=== PATIENT | male | born 1950 | race Caucasian/White ===

== ENCOUNTER 2017-08-20 11:52 | Inpatient (IN) | payer MEDICARE, OTHER ==
[~2017-08-20] VITALS: Ht 172.7 cm; Wt 75.2 kg
[~2017-08-20 11:52] MED LIST: AMIO200T33 PO; EZET10TA6; ISOS60TA24 PO; METO50TA7 PO; MONT10TA23; OMEP20CA74 PO; PRO AIR INH; PROVENTYL INH; QUIN10TA; RIVA20TA PO; ROSU5TAB5 PO; VENL150C PO; VENL150C58 PO
[2017-08-20] MEDS ORDERED: SODIUM CHLORIDE 0.9% 1,000 ML IV ONE (11:59)
[2017-08-20] MEDS ORDERED: IPRATROPIUM BROM 0.5 MG/2.5ML INH SOL HHN ONE (12:00)
[2017-08-20] MEDS ORDERED: LEVOFLOXACIN 500MG 100 ML IV ONE (12:00)
[2017-08-20] MEDS ORDERED: methylPREDNISolone SOD SUCC 125 MG/2 ML VL IV ONE (12:00)
[2017-08-20] MEDS ORDERED: ALBUTEROL SULF 2.5 MG/0.5ML(0.5%) NEB SOLN HHN ONE (12:00)
[2017-08-20 13:35] LABS: Basophils # (auto) 0 uL; Basophils % (auto) 0.3 % (0.0-2.0); Eosinophils # (auto) 0 uL; Eosinophils % (auto) 0.4 % (0.0-7.0); Hemoglobin 14.6 g/dL (13.5-17.5); Lymphocytes # (auto) 1.7 uL; Lymphocytes % (auto) 18.1 % (10.0-50.0); Mean Corpuscular Hemoglobin 29.8 pg (28.0-32.0); Mean Corpuscular Hgb Conc. 32.4 g/dL (32.0-36.0); Monocytes # (auto) 0.6 uL; Monocytes % (auto) 6.2 % (0.0-12.0); Nucleated Red Blood Cells % 0.1 %; Platelet Count (auto) 108 10^3/uL (140-450); Red Blood Cells 4.89 10^6/uL (4.5-5.90); Red Cell Distribution Width 14.9 % (11.8-14.3); White Blood Cell 9.4 10^3/uL (4.4-10.8)
[2017-08-20 14:03] LABS: Alanine Aminotransferase 18 U/L (16-61); Albumin 3.9 g/dL (3.4-5.0); Anion Gap 11 (5-15); Aspartate Aminotransferase 16 U/L (15-37); BUN/Creatinine Ratio 15.1; Blood Urea Nitrogen 11 mg/dL (7-18); Carbon Dioxide 24 mmol/L (21-32); Chloride 101 mmol/L (98-107); GFR African American 138 mL/min; GFR Non-African American 114 mL/min; Glucose 117 mg/dL (74-106); Magnesium 2.4 mg/dL (1.6-2.6); Potassium 3.3 mmol/L (3.5-5.1); Sodium 136 mmol/L (136-145)
[2017-08-20 14:08] LABS: Alkaline Phosphatase 80 U/L (45-117); Bilirubin, Total 0.9 mg/dL (0.2-1.0); Total Protein 7.7 g/dL (6.4-8.2)
[2017-08-20 14:13] LABS: Lactic Acid w/Reflex 2.6 mmol/L (0.4-2.0)
[2017-08-20] MEDS ORDERED: ACETAMINOPHEN 325 MG TAB PO PRN (15:00)
[2017-08-20] MEDS ORDERED: MORPHINE SULFATE 10 MG/ML INJ 1ML SDV IV PRN ×2 (15:00)
[2017-08-20] MEDS ORDERED: NITROGLYCERIN 0.4 MG SL TAB SL PRN (15:00)
[2017-08-20] MEDS ORDERED: PROCHLORPERAZINE EDISYLATE 5 MG/ML 2ML VIAL IV PRN (15:00)
[2017-08-20] MEDS ORDERED: POTASSIUM CHLORIDE 8 MEQ TAB PO ONE (15:15)
[2017-08-20] MEDS ORDERED: DIAZEPAM 5 MG TAB PO PRN (15:15)
[2017-08-20] MEDS ORDERED: BACLOFEN 10 MG TAB PO PRN (15:15)
[2017-08-20] MEDS ORDERED: AZITHROMYCIN 500MG/ 250ML 250 ML IV ONE (15:15)
[2017-08-20] MEDS ORDERED: cefTRIAXone 1GM/10ml IVPUSH 10 ML IV ONE (15:15)
[2017-08-20 15:25] VITALS: BP 140/76
[2017-08-20] MEDS: ALBUTEROL SULF 2.5 MG/0.5ML(0.5%) NEB SOLN NEB SCH (18:08)
[2017-08-20] MEDS: IPRATROPIUM BROM 0.5 MG/2.5ML INH SOL NEB SCH (18:08)
[2017-08-20 21:00] VITALS: BP 127/81
[2017-08-20 21:05] LABS: Lactic Acid w/Reflex 5.3 mmol/L (0.4-2.0)
[2017-08-20 21:30] VITALS: BP 127/81
[2017-08-20] MEDS: SODIUM CHLOR 0.9% PF (SALINE LOCK) 10ML VIAL IV SCH (21:38)
[2017-08-20] MEDS: AMIODARONE HCL 200 MG TAB PO SCH (21:39)
[2017-08-20] MEDS: FAMOTIDINE 20 MG TAB PO SCH (21:39)
[2017-08-20] MEDS: ATORVASTATIN 20 MG TAB PO SCH (21:39)
[2017-08-20] MEDS: MONTELUKAST SODIUM 10 MG TAB PO SCH (21:39)
[2017-08-20] MEDS: HYDROcodone-ACET 5/325MG TAB PO PRN (21:40)
[2017-08-20] MEDS: TEMAZEPAM 15 MG CAP PO PRN (23:12)
[2017-08-20] MEDS: DOCUSATE SOD 100 MG CAP PO PRN (23:12)
[2017-08-21 05:00] VITALS: BP 158/97
[2017-08-21] MEDS: SODIUM CHLOR 0.9% PF (SALINE LOCK) 10ML VIAL IV SCH ×3 (05:35→21:57)
[2017-08-21] MEDS: HYDROcodone-ACET 5/325MG TAB PO PRN ×2 (05:35→20:54)
[2017-08-21 05:50] LABS: Basophils # (auto) 0 uL; Basophils % (auto) 0.1 % (0.0-2.0); Eosinophils # (auto) 0 uL; Hematocrit 40.7 % (41.0-53.0); Hemoglobin 13.9 g/dL (13.5-17.5); Lymphocytes # (auto) 0.4 uL; Lymphocytes % (auto) 5.7 % (10.0-50.0); Mean Corpuscular Hemoglobin 29.9 pg (28.0-32.0); Mean Corpuscular Hgb Conc. 34.1 g/dL (32.0-36.0); Mean Corpuscular Volume 87.7 fL (80.0-100.0); Monocytes # (auto) 0.3 uL; Monocytes % (auto) 3.7 % (0.0-12.0); Neutrophils # (auto) 6.2 uL; Neutrophils % (auto) 90.5 % (37.0-80.0); Nucleated Red Blood Cells % 0.1 %; Platelet Count (auto) 122 10^3/uL (140-450); Red Blood Cells 4.64 10^6/uL (4.5-5.90); Red Cell Distribution Width 14.4 % (11.8-14.3); White Blood Cell 6.9 10^3/uL (4.4-10.8)
[2017-08-21 06:02] LABS: Albumin 3.6 g/dL (3.4-5.0); BUN/Creatinine Ratio 18.2; Potassium 3.5 mmol/L (3.5-5.1)
[2017-08-21 06:05] LABS: Bilirubin, Total 0.6 mg/dL (0.2-1.0); Total Protein 7.7 g/dL (6.4-8.2)
[2017-08-21] MEDS: ALBUTEROL SULF 2.5 MG/0.5ML(0.5%) NEB SOLN NEB SCH ×4 (07:22→19:29)
[2017-08-21] MEDS: IPRATROPIUM BROM 0.5 MG/2.5ML INH SOL NEB SCH ×4 (07:22→18:00)
[2017-08-21 09:00] VITALS: BP 147/90
[2017-08-21] MEDS: METOPROLOL SUCCINATE XL 50 MG TAB PO SCH (10:00)
[2017-08-21] MEDS ORDERED: PANTOPRAZOLE 40 MG TAB PO SCH (10:00)
[2017-08-21] MEDS ORDERED: PATIENTS OWN MEDICATION PO SCH (10:00)
[2017-08-21] MEDS: cefTRIAXone 1GM/10ml IVPUSH 10 ML IV SCH (10:02)
[2017-08-21] MEDS: AZITHROMYCIN 500MG/ 250ML 250 ML IV SCH (10:02)
[2017-08-21] MEDS: MULTIPLE VITAMIN TAB PO SCH (10:03)
[2017-08-21] MEDS: QUINAPRIL HCL 10 MG TAB PO SCH (10:03)
[2017-08-21] MEDS: AMIODARONE HCL 200 MG TAB PO SCH ×2 (10:03→21:57)
[2017-08-21] MEDS: ISOSORBIDE MONONITRATE 60 MG TAB PO SCH (10:03)
[2017-08-21] MEDS: FAMOTIDINE 20 MG TAB PO SCH (10:04)
[2017-08-21 12:37] LABS: INR 0.93 (0.9-1.15); Prothrombin Time 10.1 sec (9.37-12.3)
[2017-08-21 13:00] VITALS: BP 129/77
[2017-08-21 13:55] LABS: INR 0.93 (0.9-1.15); Partial Thromboplastin Time 25.8 sec (22.64-33.71); Prothrombin Time 10.1 sec (9.37-12.3)
[2017-08-21 17:00] VITALS: BP 159/79
[2017-08-21 21:42] VITALS: BP 108/52
[2017-08-21] MEDS: ATORVASTATIN 20 MG TAB PO SCH (21:57)
[2017-08-21] MEDS: DOCUSATE SOD 100 MG CAP PO PRN (21:58)
[2017-08-21] MEDS: MONTELUKAST SODIUM 10 MG TAB PO SCH (21:58)
[2017-08-21] MEDS: PANTOPRAZOLE 40 MG TAB PO SCH (21:58)
[2017-08-22] MEDS: ALBUTEROL SULF 2.5 MG/0.5ML(0.5%) NEB SOLN NEB SCH ×4 (00:16→18:56)
[2017-08-22] MEDS: IPRATROPIUM BROM 0.5 MG/2.5ML INH SOL NEB SCH ×4 (00:17→18:56)
[2017-08-22] MEDS: HYDROcodone-ACET 5/325MG TAB PO PRN ×3 (02:37→17:52)
[2017-08-22 05:00] VITALS: BP 149/81
[2017-08-22] MEDS: SODIUM CHLOR 0.9% PF (SALINE LOCK) 10ML VIAL IV SCH ×3 (06:00→21:44)
[2017-08-22 07:13] LABS: Basophils # (auto) 0 uL; Basophils % (auto) 0.3 % (0.0-2.0); Eosinophils # (auto) 0 uL; Eosinophils % (auto) 0.4 % (0.0-7.0); Hematocrit 38.8 % (41.0-53.0); Hemoglobin 13.2 g/dL (13.5-17.5); Lymphocytes # (auto) 1.3 uL; Lymphocytes % (auto) 13.2 % (10.0-50.0); Mean Corpuscular Hemoglobin 30.1 pg (28.0-32.0); Mean Corpuscular Volume 88.4 fL (80.0-100.0); Monocytes # (auto) 0.7 uL; Monocytes % (auto) 6.5 % (0.0-12.0); Neutrophils % (auto) 79.6 % (37.0-80.0); Nucleated Red Blood Cells % 0.1 %; Platelet Count (auto) 155 10^3/uL (140-450); Red Blood Cells 4.38 10^6/uL (4.5-5.90); Red Cell Distribution Width 14.4 % (11.8-14.3)
[2017-08-22 07:36] LABS: BUN/Creatinine Ratio 27.4; Calcium 9.3 mg/dL (8.5-10.1); Potassium 3.4 mmol/L (3.5-5.1)
[2017-08-22 07:55] VITALS: BP 141/85
[2017-08-22] MEDS: cefTRIAXone 1GM/10ml IVPUSH 10 ML IV SCH (09:35)
[2017-08-22] MEDS: AZITHROMYCIN 500MG/ 250ML 250 ML IV SCH (09:36)
[2017-08-22] MEDS: PANTOPRAZOLE 40 MG TAB PO SCH ×2 (09:37→21:44)
[2017-08-22] MEDS: QUINAPRIL HCL 10 MG TAB PO SCH (09:37)
[2017-08-22] MEDS: METOPROLOL SUCCINATE XL 50 MG TAB PO SCH (09:38)
[2017-08-22] MEDS: MULTIPLE VITAMIN TAB PO SCH (09:38)
[2017-08-22] MEDS: AMIODARONE HCL 200 MG TAB PO SCH ×2 (09:42→21:44)
[2017-08-22] MEDS: ISOSORBIDE MONONITRATE 60 MG TAB PO SCH (09:42)
[2017-08-22 11:36] VITALS: BP 153/82
[2017-08-22 16:18] VITALS: BP 137/82
[2017-08-22] MEDS ORDERED: BISACODYL 10 MG RECT SUPP PR ONE (17:00)
[2017-08-22] MEDS ORDERED: LACTULOSE 20Gm/30ML SOLN PO ONE (17:00)
[2017-08-22] MEDS: ATORVASTATIN 20 MG TAB PO SCH (21:44)
[2017-08-22] MEDS: MONTELUKAST SODIUM 10 MG TAB PO SCH (21:45)
[2017-08-22 22:00] VITALS: BP 147/89
[2017-08-23] VITALS (9 sets, daily range): BP systolic 128–163; BP diastolic 45–101
[2017-08-23] MEDS: IPRATROPIUM BROM 0.5 MG/2.5ML INH SOL NEB SCH ×4 (00:41→19:40)
[2017-08-23] MEDS: ALBUTEROL SULF 2.5 MG/0.5ML(0.5%) NEB SOLN NEB SCH ×4 (00:41→19:40)
[2017-08-23] MEDS: TEMAZEPAM 15 MG CAP PO PRN (03:21)
[2017-08-23] MEDS: SODIUM CHLOR 0.9% PF (SALINE LOCK) 10ML VIAL IV SCH ×2 (05:28→13:01)
[2017-08-23 07:57] LABS: Basophils # (auto) 0 uL; Basophils % (auto) 0.4 % (0.0-2.0); Eosinophils # (auto) 0 uL; Eosinophils % (auto) 0.4 % (0.0-7.0); Hematocrit 42.3 % (41.0-53.0); Hemoglobin 14.2 g/dL (13.5-17.5); Lymphocytes # (auto) 1.2 uL; Lymphocytes % (auto) 14.9 % (10.0-50.0); Mean Corpuscular Hemoglobin 29.8 pg (28.0-32.0); Mean Corpuscular Hgb Conc. 33.6 g/dL (32.0-36.0); Mean Corpuscular Volume 88.8 fL (80.0-100.0); Monocytes # (auto) 0.6 uL; Neutrophils # (auto) 6.4 uL; Neutrophils % (auto) 77.3 % (37.0-80.0); Platelet Count (auto) 196 10^3/uL (140-450); Red Blood Cells 4.77 10^6/uL (4.5-5.90); Red Cell Distribution Width 14.5 % (11.8-14.3); White Blood Cell 8.3 10^3/uL (4.4-10.8)
[2017-08-23 08:05] LABS: BUN/Creatinine Ratio 20.5; Calcium 9.6 mg/dL (8.5-10.1); Potassium 4.3 mmol/L (3.5-5.1)
[2017-08-23] MEDS ORDERED: LIDOCAINE VISCOUS 2% 15ML UD ONE (08:25)
[2017-08-23] MEDS ORDERED: diphenhdrAMINE HCL 50 MG/1 ML VL ONE (08:25)
[2017-08-23] MEDS ORDERED: SODIUM CHLORIDE LOCK 10 ML ONE (08:25)
[2017-08-23] MEDS ORDERED: fentaNYL CITRATE 100 MCG/2 ML VL ONE (08:26)
[2017-08-23] MEDS: MIDAZOLAM HCL 5 MG/ML-1ML VIAL ONE ×2 (09:15→09:18)
[2017-08-23] MEDS ORDERED: AZITHROMYCIN 250 MG TAB PO SCH (10:00)
[2017-08-23] MEDS: cefTRIAXone 1GM/10ml IVPUSH 10 ML IV SCH (10:47)
[2017-08-23] MEDS: QUINAPRIL HCL 10 MG TAB PO SCH (10:48)
[2017-08-23] MEDS: AMIODARONE HCL 200 MG TAB PO SCH (10:48)
[2017-08-23] MEDS: METOPROLOL SUCCINATE XL 50 MG TAB PO SCH (10:50)
[2017-08-23] MEDS: MULTIPLE VITAMIN TAB PO SCH (10:51)
[2017-08-23] MEDS: PANTOPRAZOLE 40 MG TAB PO SCH (10:51)
[2017-08-23] MEDS: ISOSORBIDE MONONITRATE 60 MG TAB PO SCH (10:51)
[2017-08-23] MEDS: HYDROcodone-ACET 5/325MG TAB PO PRN ×2 (13:01→17:44)
[2017-08-23] MEDS ORDERED: AZIT250T7 PO (16:57)
[2017-08-23] MEDS ORDERED: PANT40T PO (16:57)
== END 2017-08-23 19:41 | disposition home or self-care (01) | DRG 871 ==
LOC: EDBD 11:52 → ER 11:52 → TELE 11:53 → TELE-WESTW 20:38
PROVIDERS: ADMIT Internal Medicine; ATTEND Nurse Practitioner Acute Care
PROC: 0DB78ZX Excision of Stomach, Pylorus, Via Natural or Artificial Opening Endoscopic, Diagnostic (ICD-10-PCS; principal; 2017-08-23 09:13)
DX: A41.9 Sepsis, unspecified organism (principal); J18.9 Pneumonia, unspecified organism; D68.69 Other thrombophilia; D69.6 Thrombocytopenia, unspecified; I11.0 Hypertensive heart disease with heart failure; K29.61 Other gastritis with bleeding; I48.91 Unspecified atrial fibrillation; I48.92 Unspecified atrial flutter; I50.42 Chronic combined systolic (congestive) and diastolic (congestive) heart failure; I48.1 Persistent atrial fibrillation; J44.0 Chronic obstructive pulmonary disease with (acute) lower respiratory infection; J45.901 Unspecified asthma with (acute) exacerbation; K92.1 Melena; J44.1 Chronic obstructive pulmonary disease with (acute) exacerbation; J20.9 Acute bronchitis, unspecified; E87.6 Hypokalemia; E78.5 Hyperlipidemia, unspecified; F32.9 Major depressive disorder, single episode, unspecified; I25.10 Atherosclerotic heart disease of native coronary artery without angina pectoris; I73.9 Peripheral vascular disease, unspecified; K59.00 Constipation, unspecified; R74.0 Nonspecific elevation of levels of transaminase and lactic acid dehydrogenase [LDH]; Z90.49 Acquired absence of other specified parts of digestive tract; Z95.810 Presence of automatic (implantable) cardiac defibrillator; Z85.46 Personal history of malignant neoplasm of prostate; Z93.3 Colostomy status; I25.2 Old myocardial infarction; Z90.79 Acquired absence of other genital organ(s); Z80.8 Family history of malignant neoplasm of other organs or systems; Z87.891 Personal history of nicotine dependence; Z98.61 Coronary angioplasty status; Z71.3 Dietary counseling and surveillance
CPT/HCPCS: 36415; 43239; 71045; 74176; 80048; 80053; 83605; 83735; 83880; 84484; 85025; 85610; 85730; 86850; 86900; 86901; 87040; 93005; 94640; 94644; 96374; 96375; 99291; J1956; J2250

== ENCOUNTER 2024-06-27 16:45 | Inpatient (IN) | payer MEDICARE, OTHER ==
[~2024-06-27] VITALS: Ht 172.7 cm; Wt 82.4 kg
[~2024-06-27 16:45] MED LIST changes: +AZIT-43 PO; +BUDE1AER6 IN; +EZET10TA22 BC; -EZET10TA6; +HYDR-4798 PO; +ISOS1TAB29 PO; -ISOS60TA24 PO; +METO-6 PO; -METO50TA7 PO; -MONT10TA23; +MONT10TA23 PO; +PANT40T PO; +PANT40TA2 PO; +PREG100C PO; -QUIN10TA; +QUIN10TA2; -VENL150C PO; +VENL150C3 PO
[2024-06-27 16:55] VITALS: PULSE 148; RESP 16; O2SAT 96
--- NOTE | 2024-06-27 16:57 | ED.PDOC ---
SOB-HPI HPI Comments A 73 year old male brought in by EMS presents to the ED with a chief complaint of shortness of breath onset 2 days. Per EMS, called 911 due to the patient experiencing shortness of breath for the past 2 days but worsen today. EMS gave patient 2 Nebulizer treatment with no improvement. Upon ED arrival, patient was on oxygen, RR was 20 with abdominal retractions. He has a past medical history of CHF, COPD, TX, HTN, Afib, cancer, PAD, HLD. No other symptoms or modifying factors present at this time. Chief Complaint: Shortness of Breath Time Seen by MD: 16:45 Primary Care Provider: DR COLMENARES Reviewed notes: Medications, Allergies Information Source: Patient, Emergency Med Personnel Mode of Arrival: EMS Severity: Moderate Timing: Days Duration: Since onset History of: COPD, CHF Prehospital treatment: Oxygen, Treatment Past Medical History PAST MEDICAL HISTORY: AFIB, Cancer, CHF, COPD, Depression, High Lipids, HTN, TX, PAD Surgical History: Cholecystectomy, Hernia Repair, Pacemaker, PTCA Family History Family History: No family hx of Cancer Social History Smoker: Non-Smoker, Quit Greater Than 1 Year Alcohol: Denies ETOH Use Drugs: Denies Drug Use Lives In: Home Constitutional: denies: chills, diaphoresis, fatigue, fever, malaise, sweats, weakness, others EENTM: denies: blurred vision, double vision, ear bleeding, ear discharge, ear drainage, ear pain, ear ringing, eye pain, eye redness, hearing loss, mouth pain, mouth swelling, nasal discharge, nose bleeding, nose congestion, nose pain, photophobia, tearing, throat pain, throat swelling, voice changes, others Respiratory: reports: shortness of breath, wheezing; denies: cough, hemoptysis, orthopnea, SOB at rest, SOB with excertion, stridor, others Cardiovascular: denies: chest pain, dizzy spells, diaphoresis, Dyspnea on exertion, edema, irregular heart beat, left arm pain, lightheadedness, palpitations, PND, syncope, others Gastrointestinal: denies: abdomen distended, abdominal pain, blood streaked bowels, constipated, diarrhea, dysphagia, difficulty swallowing, hematemesis, melena, nausea, poor appetite, poor fluid intake, rectal bleeding, rectal pain, vomiting, others Genitourinary: denies: burning, dysuria, flank pain, frequency, hematuria, incontinence, penile discharge, penile sore, pain, testicle pain, testicle swelling, urgency, others Neurological: denies: dizziness, fainting, headache, left sided numbness, left sided weakness, numbness, paresthesia, pre-existing deficit, right sided numbness, right sided weakness, seizure, speech problems, tingling, tremors, weakness, others Musculoskeletal: denies: back pain, gout, joint pain, joint swelling, muscle pain, muscle stiffness, neck pain, others Integumetry: denies: bruises, change in color, change in hair/nails, dryness, laceration, lesions, lumps, rash, wounds, others Allergic/Immunocompromised: denies: Difficulty Healing, Frequent Infections, Hives, Itching, others Hematologic/Lymphatic: denies: anemia, blood clots, easy bleeding, easy bruising, swollen glands, others Endocrine: denies: excessive hunger, excessive sweating, excessive thirst, excessive urination, flushing, intolerance to cold, intolerance to heat, unexplained weight gain, unexplained weight loss, others Psychiatric: denies: anxiety, bipolar disorder, depression, hopeless, panic disorder, schizophrenia, sleepless, suicidal, others All Other Systems: Reviewed and Negative Physical Exam General Appearance: Moderate Distress, Normal HEENT: Normal ENT Inspection, Pharynx Normal, TMs Normal Neck: Full Range of Motion, Non-Tender, Normal, Normal Inspection Respiratory: Chest Non-Tender, Rales, Respiratory Distress, Rhonchi Cardiovascular: No Edema, No JVD, No Murmur, No Gallop, Tachycardia Breast Exam: Deferred Gastrointestinal: No Organomegaly, Non Tender, No Pulsatile Mass, Normal Bowel Sounds, Soft Genitalia: Deferred Pelvic: Deferred Rectal: Deferred Extremities: No calf tenderness, Normal capillary refill, Normal inspection, Normal range of motion, Non-tender, No pedal edema Musculoskeletal : Apperance: Normal Neurologic: Alert, infection control practitioner II-XII nml as Tested, No Motor Deficits, Normal Affect, Normal Mood, No Sensory Deficits Cerebellar Function: Normal Reflexes: Normal Skin: Dry, Normal Color, Warm Lymphatic: No Adenopathy Was a procedure done? Was a procedure done?: No Differential Dx Differential Diagnosis: Asthma, Bronchitis, CHF, COPD, Hypertension, Myocardial infarction, Pneumonia, Pulmonary Embolism, Respiratory Distress, Pharyngitis, Other X-Ray, Labs, Meds, VS Vital Signs Date Time Temp Pulse Resp B/P (MAP) Pulse Ox O2 Delivery O2 Flow Rate FiO2 06/27/24 18:56 67 17 101/55 (70) 99 06/27/24 18:31 138/85 06/27/24 16:55 148 16 96 Bi-Pap+ 50 50 06/27/24 16:54 152 159/82 Facial BiPAP Mask 50 06/27/24 16:52 148 16 159/82 (107) 96 06/27/24 16:52 148 06/27/24 16:45 98.6 80 28 106/70 (82) 95 06/27/24 16:45 26 95 Simple Mask* 10 99 Lab Test 06/27/24 18:31 06/27/24 17:43 06/27/24 17:27 Range/Units Troponin I High Sensitivity Pending 631 *H </=54 ng/L White Blood Count 11.4 H 4.4-10.8 10^3/uL Red Blood Count 4.40 L 4.5-5.90 10^6/uL Hemoglobin 11.1 L 13.5-17.5 g/dL Hematocrit 34.8 L 41.0-53.0 % Mean Corpuscular Volume 79.0 L 80.0-100.0 fL Mean Corpuscular Hemoglobin 25.2 L 28.0-32.0 pg Mean Corpuscular Hemoglobin Concent 31.9 L 32.0-36.0 g/dL Red Cell Distribution Width 19.7 H 11.8-14.3 % Platelet Count 187 140-450 10^3/uL Mean Platelet Volume 8.2 6.9-10.8 fL Neutrophils (%) (Auto) 89.5 H 37.0-80.0 % Lymphocytes (%) (Auto) 5.1 L 10.0-50.0 % Monocytes (%) (Auto) 4.1 0.0-12.0 % Eosinophils (%) (Auto) 0.6 0.0-7.0 % Basophils (%) (Auto) 0.7 0.0-2.0 % Neutrophils # (Auto) 10.2 H 1.6-8.6 10 ^3/uL Lymphocytes # (Auto) 0.6 0.4-5.4 10 ^3/uL Monocytes # (Auto) 0.5 0-1.3 10 ^3/uL Eosinophils # (Auto) 0.1 0-0.8 10 ^3/uL Basophils # (Auto) 0.1 0-0.2 10 ^3/uL Nucleated Red Blood Cells 0.1 % Sodium Level 142 136-145 mmol/L Potassium Level 4.3 3.5-5.1 mmol/L Chloride Level 105 98-107 mmol/L Carbon Dioxide Level 23 20-31 mmol/L Anion Gap 14 5-15 Blood Urea Nitrogen 16 9-23 mg/dL Creatinine 1.02 0.700-1.30 mg/dL Glomerular Filtration Rate Calc 77 >90 mL/min BUN/Creatinine Ratio 15.7 10.0-20.0 Serum Glucose 246 H 74-106 mg/dL Lactic Acid Level 5.8 *H 0.4-2.0 mmol/L Calcium Level 10.2 8.7-10.4 mg/dL Phosphorus Level 3.6 2.4-5.1 mg/dL Magnesium Level 1.9 1.6-2.6 mg/dL Total Bilirubin 0.6 0.2-1.0 mg/dL Aspartate Amino Transferase (AST) 19 13-40 U/L Alanine Aminotransferase (ALT) 10 7-40 U/L Alkaline Phosphatase 78 46-116 U/L B-Type Natriuretic Peptide 897.69 0-100 pg/mL Total Protein 6.5 5.7-8.2 g/dL Albumin 4.1 3.2-4.8 g/dL Blood Gas Specimen Type Arterial Blood Gas Sample Site Right radial Blood Gas Patient Temperature 37.0 Arterial Blood Date Drawn [id number] Arterial Blood pH 7.346 L 7.350-7.450 Arterial Blood Partial Pressure CO2 38.5 35.0-48.0 mmHg Arterial Blood Partial Pressure O2 93.5 83.0-108.0 mmHg Arterial Blood HCO3 20.6 L 21.0-28.0 mmol/L Arterial Blood Oxygen Saturation 96.5 94.0-98.0 % Arterial Blood Base Excess -4.6 L -2.0-3.0 mmol/L Arterial Blood Oxyhemoglobin 95.4 94.0-98.0 % Arterial Blood Carboxyhemoglobin 0.5 0.5-1.5 % Arterial Blood Methemoglobin 0.6 0.0-1.5 % Seth Test Yes Blood Gas Total Hemoglobin 11.80 L 13.5-17.5 g/dL Blood Gas Set Respiration Rate 12.0 Blood Gas Modality Mask - bipap Blood Gas Spontaneous Rate 13 FiO2 % 50.0 Blood Gas EPAP 5 Blood Gas IPAP 15 Current Medications Medications (Trade) Dose Ordered Sig/Sebas Route Start Time Stop Time Status Last Admin Furosemide (Lasix Injection) 40 mg ONCE ONCE IV 06/27/24 18:15 06/27/24 18:16 DC 06/27/24 18:31 [place] [id number] Ph: [phone] DIAGNOSTIC IMAGING Diagnostic Imaging Report : [id number] Signed PATIENT: AMY STRINGER ACCT: [id number] UNIT: [id number] : 1950 LOC: ER ROOM / BED: / AGE / SEX: 73 / M ADM STATUS: REG ER SERVICE 50 ORDERING PHYSICIAN: OMID DE OLIVEIRA MD PROCEDURE(s): CXRP - CHEST PORTABLE REASON: sob ORDER NUMBER(s): [id number], ACCESSION NUMBER(s): [id number] CHEST RADIOGRAPH Indication: sob Technique: Single frontal view of the chest was obtained Comparison: None FINDINGS: Lines and Tubes: None. Left-sided approach biventricular lead AICD is noted. Lungs: No focal consolidation. Hyperinflation of the lungs with diffuse interstitial prominence. Pleura: No effusion. No pneumothorax. Cardiomediastinal contours: Unremarkable Bones: No acute osseous abnormality. IMPRESSION: Hyperinflation of the lungs with diffuse interstitial prominence which may be due to emphysematous changes. Underlying infectious process / pulmonary edema can not be excluded. ATED BY: FARNAZ SHERMAN DO DICTATED DATE/TIME: 06/27/241733 SIGNED BY: FARNAZ SHERMAN DO SIGNED DATE/TIME: 06/27/241733 CC: Time of 1ST Reevaluation: 17:15 Reevaluation 1ST: Unchanged Time of 2ND Reevaluation: 18:57 Reevaluation 2ND: Unchanged Patient Education/Counseling: Diagnosis, Treatment, Prognosis Family Education/Counseling: No Family Present Additional Information HI DATA VOL/COMPLEXITY:>2 External Notes- Ordered Test- XY, Lab, PHA, EKG, RT Reviewed Results: CBC, CMP, BNP, LA W/ reflex, TROP, TROP, TROP, Magnesium, Phosphorous Independent Hx- EMS Interpreted Results- XY/EKG Discuss Tx/Results- medical personnel, patient Departure 1 Departure Time of Disposition: 18:58 Impression: Primary Impression: Chronic combined systolic and diastolic CHF (congestive heart failure) Additional Impressions: Acute coronary syndrome Respiratory failure with hypoxia Disposition: ADMITTED INPATIENT Condition: Guarded Critical Care Note Critical Care Time?: Yes (35 min-critical care time only) Critical care comment: Total critical care time: Approximately 36 minutes Due to a high probability of clinically significant, life threatening deterioration, the patient required my highest level of preparedness to intervene emergently and I personally spent this critical care time directly and personally managing the patient. This critical care time included obtaining a history; examining the patient; pulse oximetry; ordering and review of studies; arranging urgent treatment with development of a management plan; evaluation of patient's response to treatment; frequent reassessment; and, discussions with other providers. Stability Stability form required: No Heart Score Heart Score: Heart Score Response (Comments) Value History Moderate Suspicious 1 EKG Repolarization Disturb 1 Age >65 2 Risk Factors 1 or 2 risk factors 1 Troponin >3 x's Normal limit 2 Total 7 I personally scribed for OMID DE OLIVEIRA MD ([email or web address]) on 06/27/24 at 16:57. Electronically submitted by Jaqueline Martin ([email or web address]). I personally scribed for OMID DE OLIVEIRA MD ([email or web address]) on 06/27/24 at 17:11. Electronically submitted by Jaqueline Martin ([email or web address]). I personally scribed for OMID DE OLIVEIRA MD ([email or web address]) on 06/27/24 at 17:40. Electronically submitted by Jaqueline Martin ([email or web address]). OMID DE OLIVEIRA MD Jun 27, 2024 16:57 LANCE HINES MD Jun 27, 2024 19:00
--- NOTE | 2024-06-27 17:37 | DVH ---
CHEST RADIOGRAPH Indication: sob Technique: Single frontal view of the chest was obtained Comparison: None FINDINGS: Lines and Tubes: None. Left-sided approach biventricular lead AICD is noted. Lungs: No focal consolidation. Hyperinflation of the lungs with diffuse interstitial prominence. Pleura: No effusion. No pneumothorax. Cardiomediastinal contours: Unremarkable Bones: No acute osseous abnormality. IMPRESSION: Hyperinflation of the lungs with diffuse interstitial prominence which may be due to emphysematous ch anges. Underlying infectious process / pulmonary edema can not be excluded.
[2024-06-27 17:43] LABS: Base Excess -4.6 mmol/L (-2.0-3.0)
--- NOTE | 2024-06-27 17:55 | ECG ---
[facility] Test Date: 2024-06-27 Test Time: 16:52:35 Pat Name: AMY STRINGER Department: er Room: 0293T Gender: M Medical Collections Specialist: kelsey : 1950 Requested By: OMID DE OLIVEIRA Order Number: [id number] Reading MD: Stephon Pedraza Measurements Intervals [place] Rate: 148 P: 0 ME: 0 QRS: -19 QRSD: 163 T: 155 QT: 330 QTc: 519 Interpretive Statements Ventricular-paced complexes No further rhythm analysis attempted due to paced rhythm Left bundle branch block Electronically Signed On 07-02-2024 16:08:40 PST by Stephon Pedraza Please click the below link to view image of tracing.
[2024-06-27 18:00] VITALS: BP 105/71; PULSE 82; O2SAT 99
[2024-06-27 18:24] LABS: Basophils # (auto) 0.1 10 ^3/uL (0-0.2); Basophils % (auto) 0.7 % (0.0-2.0); Eosinophils # (auto) 0.1 10 ^3/uL (0-0.8); Eosinophils % (auto) 0.6 % (0.0-7.0); Hematocrit 34.8 % (41.0-53.0); Hemoglobin 11.1 g/dL (13.5-17.5); Lymphocytes # (auto) 0.6 10 ^3/uL (0.4-5.4); Lymphocytes % (auto) 5.1 % (10.0-50.0); Mean Corpuscular Hemoglobin 25.2 pg (28.0-32.0); Mean Corpuscular Hgb Conc. 31.9 g/dL (32.0-36.0); Monocytes # (auto) 0.5 10 ^3/uL (0-1.3); Monocytes % (auto) 4.1 % (0.0-12.0); Neutrophils # (auto) 10.2 10 ^3/uL (1.6-8.6); Neutrophils % (auto) 89.5 % (37.0-80.0); Nucleated Red Blood Cells % 0.1 %; Platelet Count (auto) 187 10^3/uL (140-450); Red Cell Distribution Width 19.7 % (11.8-14.3); White Blood Cell 11.4 10^3/uL (4.4-10.8)
[2024-06-27] MEDS: FUROSEMIDE 40 MG/4 ML VIAL IV ONE (18:31)
[2024-06-27 18:41] LABS: Alanine Aminotransferase 10 U/L (7-40); Albumin 4.1 g/dL (3.2-4.8); Alkaline Phosphatase 78 U/L (46-116); Anion Gap 14 (5-15); Aspartate Aminotransferase 19 U/L (13-40); BUN/Creatinine Ratio 15.7 (10.0-20.0); Blood Urea Nitrogen 16 mg/dL (9-23); Calcium 10.2 mg/dL (8.7-10.4); Carbon Dioxide 23 mmol/L (20-31); Chloride 105 mmol/L (98-107); Magnesium 1.9 mg/dL (1.6-2.6); Potassium 4.3 mmol/L (3.5-5.1); Sodium 142 mmol/L (136-145)
[2024-06-27 18:42] LABS: Bilirubin, Total 0.6 mg/dL (0.2-1.0); Phosphorus 3.6 mg/dL (2.4-5.1); Total Protein 6.5 g/dL (5.7-8.2)
[2024-06-27 18:45] LABS: Glucose 246 mg/dL (74-106)
[2024-06-27 18:47] LABS: Lactic Acid w/Reflex 5.8 mmol/L (0.4-2.0)
[2024-06-27] MEDS: SODIUM CHLORIDE 0.9% 1,000 ML IV ONE (19:09)
[2024-06-27] MEDS ORDERED: DEXTROSE (50%) 50ML SYRG IV PRN (19:15)
[2024-06-27] MEDS ORDERED: LORazepam 0.5 MG TAB PO PRN (19:15)
[2024-06-27] MEDS ORDERED: NITROGLYCERIN 0.4 MG SL TAB SL PRN (19:15)
[2024-06-27] MEDS ORDERED: MORPHINE SULFATE INJ 2 MG/ml SYRG IV PRN (19:15)
[2024-06-27] MEDS ORDERED: IPRATROPIUM BROM 0.5 MG/2.5ML INH SOL NEB PRN (19:15)
[2024-06-27] MEDS ORDERED: ALBUTEROL SULF 2.5 MG/0.5ML(0.5%) NEB SOLN NEB PRN (19:15)
[2024-06-27] MEDS: cefTRIAXone 1GM/50ML D5W 50 ML IV ONE (19:20)
[2024-06-27 19:50] VITALS: O2SAT 100
[2024-06-27] MEDS: InsuLIN REG 1unit/0.01ml Soln (100units/ml) SC SCH (20:00)
[2024-06-27] MEDS: ACCU-CHEK COMFORT CURVE STRIP VI SCH (20:00)
--- NOTE | 2024-06-27 20:04 | DVHHP2 ---
History of Present Illness Reason for Visit: shortness of breath History of Present Illness 73-year-old male with past medical history of cancer, AFib, CHF, diabetes, COPD, hyperlipidemia, mi, CAD status post angioplasty patient was brought in by EMS with complaints of shortness of breath for the past 2 days patient was having extreme shortness of breath placed on BiPAP within the ED due to hypoxemia no overt complaints of chest pain however on evaluation patient was shown to have a BNP that was severely elevated as well as an elevated troponin given the patient's cardiac history was recommended that the patient be admitted for further evaluation and management Cardiovascular: CAD, HTN Pulmonary: COPD, Pneumonia Review of Systems Constitutional: Yes: Weakness; No: Fever, Chills, Sweats, Malaise, Other Eyes: No: Pain, Vision change, Conjunctivae inflammation, Eyelid inflammation, Other, Redness ENT: No: Ear pain, Ear discharge, Nose pain, Nose discharge, Nose congestion, Mouth pain, Mouth swelling, Throat pain, Throat swelling, Other Respiratory: Cough, Shortness of breath; No: Dry, SOB with excertion, Wheezing, Hemoptysis, Pleuritic Pain, Sputum, Wheezing, Other Cardiovascular: Chest Pain, Palpitations; No: Orthopnea, Paroxysmal Noc. Dyspnea, Edema, Lt Headedness, Other Gastrointestinal: No: Nausea, Vomiting, Abdominal Pain, Diarrhea, Constipation, Melena, Hematochezia, Other Genitourinary: No Dysuria, No Frequency, No Incontinence, No Hematuria, No Retention, No Other Musculoskeletal: No: other, neck pain, shoulder pain, arm pain, back pain, hand pain, leg pain, foot pain Skin: No: Rash, Lesions, Jaundice, Bruising, Other Neurological: No: Weakness, Numbness, Incoordination, Change in speech, Confusion, Seizures, Other Allergies: Coded Allergies: NO KNOWN ALLERGIES (Unverified , 06/13/10) Exam Vital Signs Vital Signs Date Time Temp Pulse Resp B/P (MAP) Pulse Ox O2 Delivery O2 Flow Rate FiO2 06/27/24 18:56 67 17 101/55 (70) 99 06/27/24 16:55 Bi-Pap+ 50 50 06/27/24 16:45 98.6 06/27/24 16:45 10 General Appearance: Oriented X3, moderate distress HEENT: Atraumatic, PERRLA Respiratory: Clear to auscultation, Normal air movement Cardiovascular: Regular rate, Normal S1, Normal S2 Abdominal: Normal bowel sounds, Soft, No tenderness Extremities: No clubbing Skin: No rashes, No breakdown Neuro: Normal gait, Normal speech Psych/Mental Status: Mood NL Labs/Xrays Labs Test 06/27/24 18:31 06/27/24 17:43 06/27/24 17:27 Range/Units Troponin I High Sensitivity 1016 *H </=54 ng/L White Blood Count 11.4 H 4.4-10.8 10^3/uL Red Blood Count 4.40 L 4.5-5.90 10^6/uL Hemoglobin 11.1 L 13.5-17.5 g/dL Hematocrit 34.8 L 41.0-53.0 % Mean Corpuscular Volume 79.0 L 80.0-100.0 fL Mean Corpuscular Hemoglobin 25.2 L 28.0-32.0 pg Mean Corpuscular Hemoglobin Concent 31.9 L 32.0-36.0 g/dL Red Cell Distribution Width 19.7 H 11.8-14.3 % Platelet Count 187 140-450 10^3/uL Mean Platelet Volume 8.2 6.9-10.8 fL Neutrophils (%) (Auto) 89.5 H 37.0-80.0 % Lymphocytes (%) (Auto) 5.1 L 10.0-50.0 % Monocytes (%) (Auto) 4.1 0.0-12.0 % Eosinophils (%) (Auto) 0.6 0.0-7.0 % Basophils (%) (Auto) 0.7 0.0-2.0 % Neutrophils # (Auto) 10.2 H 1.6-8.6 10 ^3/uL Lymphocytes # (Auto) 0.6 0.4-5.4 10 ^3/uL Monocytes # (Auto) 0.5 0-1.3 10 ^3/uL Eosinophils # (Auto) 0.1 0-0.8 10 ^3/uL Basophils # (Auto) 0.1 0-0.2 10 ^3/uL Nucleated Red Blood Cells 0.1 % Sodium Level 142 136-145 mmol/L Potassium Level 4.3 3.5-5.1 mmol/L Chloride Level 105 98-107 mmol/L Carbon Dioxide Level 23 20-31 mmol/L Anion Gap 14 5-15 Blood Urea Nitrogen 16 9-23 mg/dL Creatinine 1.02 0.700-1.30 mg/dL Glomerular Filtration Rate Calc 77 >90 mL/min BUN/Creatinine Ratio 15.7 10.0-20.0 Serum Glucose 246 H 74-106 mg/dL Lactic Acid Level 5.8 *H 0.4-2.0 mmol/L Calcium Level 10.2 8.7-10.4 mg/dL Phosphorus Level 3.6 2.4-5.1 mg/dL Magnesium Level 1.9 1.6-2.6 mg/dL Total Bilirubin 0.6 0.2-1.0 mg/dL Aspartate Amino Transferase (AST) 19 13-40 U/L Alanine Aminotransferase (ALT) 10 7-40 U/L Alkaline Phosphatase 78 46-116 U/L B-Type Natriuretic Peptide 897.69 0-100 pg/mL Total Protein 6.5 5.7-8.2 g/dL Albumin 4.1 3.2-4.8 g/dL Blood Gas Specimen Type Arterial Blood Gas Sample Site Right radial Blood Gas Patient Temperature 37.0 Arterial Blood Date Drawn [id number] Arterial Blood pH 7.346 L 7.350-7.450 Arterial Blood Partial Pressure CO2 38.5 35.0-48.0 mmHg Arterial Blood Partial Pressure O2 93.5 83.0-108.0 mmHg Arterial Blood HCO3 20.6 L 21.0-28.0 mmol/L Arterial Blood Oxygen Saturation 96.5 94.0-98.0 % Arterial Blood Base Excess -4.6 L -2.0-3.0 mmol/L Arterial Blood Oxyhemoglobin 95.4 94.0-98.0 % Arterial Blood Carboxyhemoglobin 0.5 0.5-1.5 % Arterial Blood Methemoglobin 0.6 0.0-1.5 % Seth Test Yes Blood Gas Total Hemoglobin 11.80 L 13.5-17.5 g/dL Blood Gas Set Respiration Rate 12.0 Blood Gas Modality Mask - bipap Blood Gas Spontaneous Rate 13 FiO2 % 50.0 Blood Gas EPAP 5 Blood Gas IPAP 15 Assessment/Plan Assessment/Plan Admit to telemetry Acute on chronic COPD exacerbation COPD exacerbation to be treated as pneumonia IV antibiotics ceftriaxone p.o. antibiotics azithromycin P.r.n. breathing treatments IV steroids b.i.d. Manage patient for acute signs of fluid overload P.r.n. BiPAP as needed P.r.n. breathing treatments with nebulized albuterol and ipratropium Acute on chronic systolic CHF Associated with a NSTEMI trips greater than 600 Cardio consult Patient with BNP elevated greater than 800 Patient with signs of fluid overload B.i.d. diuretics IV Monitor for signs of fluid overload Also monitor for signs of acute hypo and hypertension Currently on BiPAP fall with respiratory Patient with a history of AFib chronic currently rate controlled monitor for signs of AFib exacerbation Chronic history including depression, hyperlipidemia, hypertension Continue with home medications as tolerated Plan discussed with: Patient My Orders Orders - ALBINO FLORES MD Procedure Category Date Status Time Ceftriaxone 1gm/50ml PHA 06/28/24 Logged D5w (Rocephin) 10:00 Azithromycin Tablet PHA 06/28/24 Logged (Zithromax Tablet) 10:00 Albuterol Medneb PHA 06/27/24 Logged (Ventolin Medneb) 19:15 Ipratropium Medneb PHA 06/27/24 Logged (Atrovent Medneb) 19:15 Med Neb Initial RT 06/27/24 Logged Treatment 19:11 Furosemide Injection PHA 06/27/24 Logged (Lasix Injection) 22:00 Amiodarone Tablet PHA 06/28/24 Logged (Cordarone Tablet) 10:00 Ezetimibe (Zetia) PHA 06/27/24 Logged 22:00 Isosorbide PHA 06/28/24 Logged Mononitrate Tablet 10:00 Metoprolol Xl PHA 06/28/24 Logged Succinate (Toprol Xl) 10:00 Pantoprazole Tablet PHA 06/27/24 Logged (Protonix Tablet) 22:00 Rivaroxaban Tablet PHA 06/28/24 Logged (Xarelto Tablet) 10:00 (Nf) Omeprazole PHA 06/28/24 Logged (Prilosec) 10:00 (Nf) Rosuvastatin PHA 06/28/24 Logged Calcium (Crestor) 10:00 (Nf) Venlafaxine Hcl PHA 06/28/24 Logged (Venlafaxine Hcl Er 10:00 Admit ADMIT 06/27/24 Transmitted 19:11 Code Status CODE 06/27/24 Transmitted 19:11 Cardiac DIET 06/28/24 Transmitted Diet-2gna,Lofat,Lochol Breakfast Acetaminophen Tablet PHA 06/27/24 Logged (Tylenol Tablet) 19:15 Zolpidem Tartrate PHA 06/27/24 Logged (Ambien) 19:15 Lorazepam Tablet PHA 06/27/24 Logged (Ativan Tablet) 19:15 Docusate Sodium PHA 06/28/24 Logged Capsule (Colace 10:00 Complete Blood Count LAB 06/28/24 Verified 04:00 Basic Metabolic Panel LAB 06/28/24 Verified 04:00 Ondansetron Hcl PHA 06/27/24 Logged (Zofran) 19:15 Electrocardigram EKG 06/27/24 Logged 19:11 Troponin-I Hs LAB 06/27/24 Logged 19:11 Lisinopril Tablet PHA 06/28/24 Logged (Zestril Tablet) 10:00 Cardiac MARILYN 06/27/24 In Process Rehabilitation - Outpa Nitroglycerin PHA 06/27/24 Logged Sublingual (Ntrostat 19:15 Morphine Sulfate PHA 06/27/24 Logged Injection 19:15 Stat Ekg For Chest MARILYN 06/27/24 In Process Pain 19:11 Notify Md Of Changes MARILYN 06/27/24 In Process From Base 19:11 Coil Assembler For MARILYN 06/27/24 In Process 24 Hours 19:[address] [facility] 06/27/24 In Process Protocol 19:[address] [facility] 06/27/24 In Process Every Shift 19:11 Oxygen By Nasal RT 06/27/24 Transmitted Cannula 19:11 Glucose Blood PHA 06/27/24 Logged (Accu-Chek Comfort 20:00 Insulin R (Human) PHA 06/27/24 Logged (Insulin R) 20:00 Dextrose 50% Syringe PHA 06/27/24 Logged 19:15 Urinalysis LAB 06/27/24 Logged 19:11 * Cardiology Consult CONS 06/27/24 Transmitted 19:32 Problem List: (1) SHORTNESS OF BREATH (2) Pneumonia (3) COPD exacerbation (4) Chronic combined systolic and diastolic CHF (congestive heart failure) (5) Acute coronary syndrome Date of Service: Jun 27, 2024 Billing Provider: ALBINO FLORES MD Common Visit Codes: [id number] INP/OBS CARE (HIGH) ALBINO FLORES MD Jun 27, 2024 20:04
[2024-06-27] MEDS: AZITHROMYCIN 500MG/ 250ML 250 ML IV ONE (20:37)
[2024-06-27 21:33] LABS: Urine Bacteria None Seen /hpf (None Seen)
[2024-06-27 21:51] LABS: Urine Blood Negative /uL (Negative); Urine Clarity Clear (Clear); Urine Color Colorless (Yellow); Urine Hyaline Cast MOD /lpf (0 - 2); Urine Protein, UAD Negative (Negative); Urine Specific Gravity 1.008 (1.001-1.035); Urine Urobilinogen Normal (Negative); Urine WBC 1 /hpf (0 - 3)
[2024-06-27] MEDS: PANTOPRAZOLE 40 MG TAB PO SCH (22:00)
[2024-06-27] MEDS: EZETIMIBE 10 MG TAB PO SCH (22:00)
[2024-06-27] MEDS: FUROSEMIDE 40 MG/4 ML VIAL IV SCH (22:00)
[2024-06-27 22:22] VITALS: BP 141/65; PULSE 65; O2SAT 100
[2024-06-28] VITALS (14 sets, daily range): BP systolic 103–129; BP diastolic 65–72; PULSE 63–172; RESP 14–22; TEMP 97.6–98.6; O2SAT 93–100
[2024-06-28] MEDS: ASPirin-EC 81 mg tab PO ONE (03:07)
[2024-06-28] MEDS: ZOLPIDEM TARTRATE 5 MG TAB PO PRN (03:40)
[2024-06-28 05:23] LABS: Basophils # (auto) 0.1 10 ^3/uL (0-0.2); Eosinophils # (auto) 0.1 10 ^3/uL (0-0.8); Mean Corpuscular Hgb Conc. 32.3 g/dL (32.0-36.0)
[2024-06-28 05:26] LABS: Basophils % (auto) 0.8 % (0.0-2.0); Eosinophils % (auto) 0.7 % (0.0-7.0); Hematocrit 34.1 % (41.0-53.0); Lymphocytes # (auto) 1.1 10 ^3/uL (0.4-5.4); Lymphocytes % (auto) 10.4 % (10.0-50.0); Mean Corpuscular Hemoglobin 25.4 pg (28.0-32.0); Mean Corpuscular Volume 78.7 fL (80.0-100.0); Monocytes # (auto) 1.1 10 ^3/uL (0-1.3); Monocytes % (auto) 10.2 % (0.0-12.0); Neutrophils # (auto) 8.1 10 ^3/uL (1.6-8.6); Neutrophils % (auto) 77.9 % (37.0-80.0); Nucleated Red Blood Cells % 0.4 %; Platelet Count (auto) 192 10^3/uL (140-450); Red Blood Cells 4.33 10^6/uL (4.5-5.90); Red Cell Distribution Width 19.7 % (11.8-14.3); White Blood Cell 10.5 10^3/uL (4.4-10.8)
[2024-06-28 05:37] LABS: Anion Gap 13 (5-15); Carbon Dioxide 27 mmol/L (20-31); Chloride 103 mmol/L (98-107); Potassium 3.9 mmol/L (3.5-5.1); Sodium 143 mmol/L (136-145)
[2024-06-28 05:39] LABS: Calcium 10.2 mg/dL (8.7-10.4)
[2024-06-28 05:43] LABS: BUN/Creatinine Ratio 16.7 (10.0-20.0); Blood Urea Nitrogen 15 mg/dL (9-23)
[2024-06-28 05:46] LABS: Glucose 109 mg/dL (74-106)
[2024-06-28] MEDS: DOCUSATE SOD 100 MG CAP PO SCH (09:45)
[2024-06-28] MEDS: AMIODARONE HCL 200 MG TAB PO SCH (09:51)
[2024-06-28] MEDS: VENLAFAXINE HCL 37.5mg XR cap PO SCH (09:52)
[2024-06-28] MEDS: ATORVASTATIN 20 MG TAB PO SCH ×2 (09:52→18:00)
[2024-06-28] MEDS: ISOSORBIDE MONONITRATE ER 60 MG TAB PO SCH (09:52)
[2024-06-28] MEDS: METOPROLOL SUCCINATE XL 50 MG TAB PO SCH (09:52)
[2024-06-28] MEDS: LISINOPRIL 5 MG TAB PO SCH (09:53)
[2024-06-28] MEDS: RIVAROXABAN 20 MG TAB PO SCH (09:53)
[2024-06-28] MEDS ORDERED: PATIENTS OWN MEDICATION (Omeprazole (Prilosec) 1 CAP) PO SCH (10:00)
--- NOTE | 2024-06-28 10:07 | DVHINCON2 ---
[facility] 06/28/24 1007: Date Seen: Jun 28, 2024 Referring Physician MD Kimberly Reason for Consultation NSTEMI History of Present Illness This is a 73 y.o. male who presented to the emergency room via EMS with a chief complaint of shortness of breath for two days. He is a very poor historian. Complains of progressive shortness of breath prompting his to call 911. En route to the hospital he was administered a breathing treatment and provided with supplemental oxygenation via BiPAP with no improvement of symptoms. He presented tachypneic and with associated abdominal retractions. Troponin levels are trending up with latest >2,000 ng/L. He underwent a 12-lead electrocardiogram revealing a ventricular paced rhythm with a associated left bundle branch block at 148 bpm. Follows up in the outpatient setting with Dr. Barnett with latest appointment being three weeks ago. Reports undergoing a recent cardiac catheterization and coronary angiogram with catheter based intervention to the RCA including 1DES at [facility] in [place] approximately two months ago. Significant medical history includes severe coronary artery disease status post multiple PCIs including 5-6 VAHID, ischemic cardiomyopathy, presence of BiV-ICD ([employer]), paroxysmal atrial fibrillation on Xarelto/amiodarone therapy, hypertension, dyslipidemia, severe COPD with history of tobacco use, history of prostate cancer, and depression with history of suicidal ideation. Past Medical History Past medical history reviewed. No other significant than mentioned above. Past Surgical History Status post BiV-ICD (Medtronic) Multiple PCIs s/p 5-6 VAHID Family History: Chronic obstructive lung disease (situation) Family history: Hypertension Prostate cancer Stroke No Family History of: Alcoholism Cancer Cancer of colon Family history: Alzheimer's disease Family history: Arthritis Family history: Asthma Family history: Autoimmune disease (situation) Family history: Blood disorder Family history: Cardiovascular disease Family history: Congenital anomaly Family history: Coronary thrombosis Family history: Depression (situation) Family history: Diabetes in Family history: Diabetes mellitus Family history: Glaucoma Family history: Hypercholesterolemia (situation) Family history: Osteoporosis Family history: Suicide (situation) Family history: Thyroid disorder Ischemic heart disease Malignant melanoma Malignant neoplasm of lung Malignant neoplasm of ovary Renal stone Seizure disorder (situation) Family History Family history reviewed. Social History Denies the use of illicit drugs, alcohol, or tobacco use. Lives at home with . Allergies: Coded Allergies: NO KNOWN ALLERGIES (Unverified , 06/13/10) Home Meds Active Scripts Pantoprazole Sodium Sesquihydr (Pantoprazole Sodium) 40 Mg Tab, 40 MG PO BID, #60 TAB Prov:YAMINI HAGER DNP 08/23/17 Metoprolol Succinate (Toprol Xl) 50 Mg Tab, 100 MG PO DAILY, #30 TAB Prov:MACK VELEZ MD 07/05/17 Reported Medications Jnurgpwtux-Ijfemancmxwrtq-Ltbp (Breztri Aerosphere 160-9-4.8 Mcg/Act) 1 Aer Aer, 1 AER IN BID, AER 06/28/24 Pregabalin (Lyrica) 100 Mg Cap, 1 CAP PO DAILY, #90 CAP 2 Refills 06/28/24 Rosuvastatin Calcium (Crestor) 10 Mg Tab, 1 TAB PO DAILY, #30 TAB 5 Refills 06/28/24 Isosorbide Mononitrate (Isosorbide Mononitrate Er) 60 Mg Tab, 60 MG PO DAILY for 30 Days, MG 07/04/17 Rivaroxaban (XARELTO) 20 Mg Tab, 1 TAB PO DAILY, #30 TAB 11 Refills 07/04/17 Amiodarone Hcl (Amiodarone Hcl) 200 Mg Tab, 1 TAB PO DAILY, #90 TAB 1 Refill 07/03/14 [Proventyl] No Conflict Check, 1 PUFF INH BID 06/07/11 [Pro Air] No Conflict Check, 1 INH DAILYP 06/07/11 Ezetimibe (Zetia) 10 Mg Tab, 10 MG BC DAILY 06/13/10 Montelukast Sodium (Singulair) 10 Mg Tab 06/13/10 Home Meds Home medications reviewed. Current Medications Current Medications Medications (Trade) Dose Ordered Sig/Sebas Route PRN Reason Start Time Stop Time Status Last Admin Ceftriaxone Sodium 50 ml @ 100 mls/hr Q24H IV 06/28/24 21:00 Azithromycin (Zithromax Tablet) 500 mg Q24H PO 06/28/24 21:00 Albuterol (Ventolin Medneb) 2.5 mg Q4HWA PRN NEB SHORTNESS OF BREATH 06/27/24 19:15 Ipratropium [place] (Atrovent Medneb) 0.5 mg Q4HPRN PRN NEB SHORTNESS OF BREATH 06/27/24 19:15 Furosemide (Lasix Injection) 40 mg BID IV 06/27/24 22:00 Amiodarone HCl (Cordarone Tablet) 200 mg DAILY PO 06/28/24 10:00 06/28/24 09:51 EZETIMIBE (Zetia) 10 mg QHSP PO 06/27/24 22:00 Isosorbide Mononitrate (Imdur Er Tablet) 60 mg DAILY PO 06/28/24 10:00 Metoprolol Succinate (Toprol Xl) 100 mg DAILY PO 06/28/24 10:00 Pantoprazole Sodium (Protonix Tablet) 40 mg BID PO 06/27/24 22:00 06/28/24 09:47 Rivaroxaban (Xarelto Tablet) 20 mg DAILY PO 06/28/24 10:00 Patient Own Medication 1 cap DAILY PO 06/28/24 10:00 06/27/24 21:46 DC Atorvastatin Calcium (Lipitor) 10 mg DAILY PO 06/28/24 10:00 06/28/24 09:52 Venlafaxine HCl (Effexor Xr) 150 mg DAILY PO 06/28/24 10:00 Acetaminophen (Tylenol Tablet) 650 mg Q6HP PRN PO MILD PAIN (1-3 PAIN SCALE) 06/27/24 19:15 Zolpidem Tartrate (Ambien) 5 mg QHSP PRN PO FOR INSOMNIA 06/27/24 19:15 06/28/24 03:40 Lorazepam (Ativan Tablet) 0.5 mg Q6HP PRN PO ANXIETY 06/27/24 19:15 Docusate Sodium (Colace Capsule) 100 mg DAILY PO 06/28/24 10:00 06/28/24 09:45 Ondansetron HCl (Zofran) 4 mg Q4HP PRN IV NAUSEA / VOMITING 06/27/24 19:15 Lisinopril (Zestril Tablet) 10 mg DAILY PO 06/28/24 10:00 Nitroglycerin (Ntrostat Sublingual) 0.4 mg Q5MINP PRN SL FOR CHEST PAIN 06/27/24 19:15 Morphine Sulfate 2 mg Q30M PRN IV FOR CHEST PAIN 06/27/24 19:15 Diagnostic Test (Pha) (Accu-Chek Comfort Curve T) 1 strip IQ4HR 06/27/24 20:00 06/28/24 08:00 Insulin Human Regular (InsuLIN R) IQ4HR SC 06/27/24 20:00 Dextrose 50 ml UD PRN IV Blood Sugar LESS THAN 60 06/27/24 19:15 Review of Systems Constitutional: No symptom reported Ears, Nose, & Throat: No symptom reported Eyes: No symptom reported Neurological: No symptoms reported Pulmonary/Respiratory: SOB Cardiovascular: No symptom reported Gastrointestinal: No symptom reported Genitourinary: No symptom reported Musculoskeletal: No symptom reported Skin: No symptom reported Psychiatric: No symptom reported Endocrine: No symptom reported Hemotologic/Lymphatic: No symptom reported Vital Signs Vital Signs Date Time Temp Pulse Resp B/P (MAP) Pulse Ox O2 Delivery O2 Flow Rate FiO2 06/28/24 09:53 102/66 06/28/24 09:52 78 06/28/24 07:20 93 Nasal Cannula* 3 32 06/28/24 05:00 98.0 19 98.0 Physical Exam General Appearance: Cooperative. Hard of hearing. Very poor historian. In no acute distress Head Exam: Normal inspection Neck Exam: Normal inspection. Non-tender. Normal alignment Pulmonary/Respiratory: Chest non-tender. Diminished bilateral breath sounds Cardiovascular/Chest: Irregular rate and rhythm. V-paced rhythm with LBBB. Peripheral Pulses: 2+ Radial (R). 2+ Radial (L). 2+ Pedal (R). 2+ Pedal (L) Abdominal Exam: Normal bowel sounds. Soft. Nontender. No hepatospenomegaly. No masses Ankle Exam: Negative ankle edema Lower extremities: Negative lower extremity edema Neuro/Mental Status: A&O x3. Coherent but very poor historian Thoughts/Psych: Normal thought pattern. Appropriate mood and affect. Flat affect Appearance: In no acute distress Skin Exam: Normal inspection. Normal color. Warm. Dry Labs/Diagnostic Data Labs Test 06/28/24 09:40 06/28/24 04:23 06/27/24 21:30 06/27/24 20:37 Range/Units POC Glucose 114 H 70-106 mg/dl White Blood Count 10.5 4.4-10.8 10^3/uL Red Blood Count 4.33 L 4.5-5.90 10^6/uL Hemoglobin 11.0 L 13.5-17.5 g/dL Hematocrit 34.1 L 41.0-53.0 % Mean Corpuscular Volume 78.7 L 80.0-100.0 fL Mean Corpuscular Hemoglobin 25.4 L 28.0-32.0 pg Mean Corpuscular Hemoglobin Concent 32.3 32.0-36.0 g/dL Red Cell Distribution Width 19.7 H 11.8-14.3 % Platelet Count 192 140-450 10^3/uL Mean Platelet Volume 8.7 6.9-10.8 fL Neutrophils (%) (Auto) 77.9 37.0-80.0 % Lymphocytes (%) (Auto) 10.4 10.0-50.0 % Monocytes (%) (Auto) 10.2 0.0-12.0 % Eosinophils (%) (Auto) 0.7 0.0-7.0 % Basophils (%) (Auto) 0.8 0.0-2.0 % Neutrophils # (Auto) 8.1 1.6-8.6 10 ^3/uL Lymphocytes # (Auto) 1.1 0.4-5.4 10 ^3/uL Monocytes # (Auto) 1.1 0-1.3 10 ^3/uL Eosinophils # (Auto) 0.1 0-0.8 10 ^3/uL Basophils # (Auto) 0.1 0-0.2 10 ^3/uL Nucleated Red Blood Cells 0.4 % Sodium Level 143 136-145 mmol/L Potassium Level 3.9 3.5-5.1 mmol/L Chloride Level 103 98-107 mmol/L Carbon Dioxide Level 27 20-31 mmol/L Anion Gap 13 5-15 Blood Urea Nitrogen 15 9-23 mg/dL Creatinine 0.90 0.700-1.30 mg/dL Glomerular Filtration Rate Calc 90 >90 mL/min BUN/Creatinine Ratio 16.7 10.0-20.0 Serum Glucose 109 #H 74-106 mg/dL Calcium Level 10.2 8.7-10.4 mg/dL Urine Color Colorless Yellow Urine Clarity Clear Clear Urine pH 5.0 5.0-9.0 Urine Specific [place] 1.008 1.001-1.035 Urine Protein Negative Negative Urine Ketones Negative Negative Urine Blood Negative Negative /uL Urine Nitrite Negative Negative Urine Bilirubin Negative Negative Urine Urobilinogen Normal Negative mg/dL Urine Leukocyte Esterase Negative Negative /uL Urine RBC <1 0 - 3 /hpf Urine WBC 1 0 - 3 /hpf Urine Squamous Epithelial Cells None seen <5 /hpf Urine Bacteria None seen None Seen /hpf Urine Hyaline Casts Mod 0 - 2 /lpf Urine Glucose 1+ H Normal mg/dL Lactic Acid Level 2.6 *H 0.4-2.0 mmol/L Troponin I High Sensitivity 2027 *H </=54 ng/L Test 06/27/24 17:43 06/27/24 17:27 Range/Units Phosphorus Level 3.6 2.4-5.1 mg/dL Magnesium Level 1.9 1.6-2.6 mg/dL Total Bilirubin 0.6 0.2-1.0 mg/dL Aspartate Amino Transferase (AST) 19 13-40 U/L Alanine Aminotransferase (ALT) 10 7-40 U/L Alkaline Phosphatase 78 46-116 U/L B-Type Natriuretic Peptide 897.69 0-100 pg/mL Total Protein 6.5 5.7-8.2 g/dL Albumin 4.1 3.2-4.8 g/dL Blood Gas Specimen Type Arterial Blood Gas Sample Site Right radial Blood Gas Patient Temperature 37.0 Arterial Blood Date Drawn [id number] Arterial Blood pH 7.346 L 7.350-7.450 Arterial Blood Partial Pressure CO2 38.5 35.0-48.0 mmHg Arterial Blood Partial Pressure O2 93.5 83.0-108.0 mmHg Arterial Blood HCO3 20.6 L 21.0-28.0 mmol/L Arterial Blood Oxygen Saturation 96.5 94.0-98.0 % Arterial Blood Base Excess -4.6 L -2.0-3.0 mmol/L Arterial Blood Oxyhemoglobin 95.4 94.0-98.0 % Arterial Blood Carboxyhemoglobin 0.5 0.5-1.5 % Arterial Blood Methemoglobin 0.6 0.0-1.5 % Seth Test Yes Blood Gas Total Hemoglobin 11.80 L 13.5-17.5 g/dL Blood Gas Set Respiration Rate 12.0 Blood Gas Modality Mask - bipap Blood Gas Spontaneous Rate 13 FiO2 % 50.0 Blood Gas EPAP 5 Blood Gas IPAP 15 Assessment NSTEMI rule out in-stent restenosis/progressive coronary artery disease Coronary artery disease status post multiple PCIs including 5-6DES Acute on chronic decompensated HFrEF, HYHA Class IV Ischemic cardiomyopathy ?LVEF Paroxysmal atrial fibrillation, on Xarelto/amiodarone therapy Acute on chronic hypoxic respiratory failure with COPD exacerbation Presence of BiV-AICD ([employer]) Hypertension Dyslipidemia Hard of hearing Plan/Recommendation (Dr. Palomino) Scheduled for cardiac catheterization and coronary angiogram with Dr. Palomino on 06/30/2024. All risks and benefits of the procedure were discussed with the patient who agrees to proceed with intervention. In the meantime, initiate Heparin drip per pharmacy protocol and load on Plavix therapy including daily maintenance. Initiate GDMT for CHF and up-titrate as tolerated. Continue antiarrhythmic with amiodarone and re-establish Xarelto therapy post cardiac intervention. Continue statin and ezetimibe therapy. Monitor troponin levels and ECG changes closely. Thank you for allowing us to participate in this patient's care. Please call if you have any questions or concerns. Critical care time: 40 min. This medical document was created using an electronic medical record system with voice recognition software and co Biotixized dictation system. Although this document has been carefully reviewed, there might still be some phonetic and typographical errors. Occasional wrong-word or ``sound-alike substitutions may have occurred due to the inherent limitations of voice recognition software. These areas are purely typographical due to imperfections of the software programs and do not reflect a ny compromise in the patient's medical care. Please read the chart carefully and recognize, using context, where these substitutions have occurred. Plan discussed with: Patient, Other Date of Service: Jun 28, 2024 Billing Provider: [facility] Cardiology Common Codes: 04734-[id number] CARE 30-74 MIN BLANCO PALOMINO MD 06/28/24 1832: Family History: Chronic obstructive lung disease (situation) Family history: Hypertension Prostate cancer Stroke No Family History of: Alcoholism Cancer Cancer of colon Family history: Alzheimer's disease Family history: Arthritis Family history: Asthma Family history: Autoimmune disease (situation) Family history: Blood disorder Family history: Cardiovascular disease Family history: Congenital anomaly Family history: Coronary thrombosis Family history: Depression (situation) Family history: Diabetes in Family history: Diabetes mellitus Family history: Glaucoma Family history: Hypercholesterolemia (situation) Family history: Osteoporosis Family history: Suicide (situation) Family history: Thyroid disorder Ischemic heart disease Malignant melanoma Malignant neoplasm of lung Malignant neoplasm of ovary Renal stone Seizure disorder (situation) Allergies: Coded Allergies: NO KNOWN ALLERGIES (Unverified , 06/13/10) Home Meds Active Scripts Pantoprazole Sodium Sesquihydr (Pantoprazole Sodium) 40 Mg Tab, 40 MG PO BID, #60 TAB Prov:YAMINI HAGER Lee Ann MCKENZIE 08/23/17 Metoprolol Succinate (Toprol Xl) 50 Mg Tab, 100 MG PO DAILY, #30 TAB Prov:MACK VELEZ MD 07/05/17 Reported Medications Uiubkjciyt-Dtdcysohunojns-Oujo (Breztri Aerosphere 160-9-4.8 Mcg/Act) 1 Aer Aer, 1 AER IN BID, AER 06/28/24 Pregabalin (Lyrica) 100 Mg Cap, 1 CAP PO DAILY, #90 CAP 2 Refills 06/28/24 Rosuvastatin Calcium (Crestor) 10 Mg Tab, 1 TAB PO DAILY, #30 TAB 5 Refills 06/28/24 Isosorbide Mononitrate (Isosorbide Mononitrate Er) 60 Mg Tab, 60 MG PO DAILY for 30 Days, MG 07/04/17 Rivaroxaban (XARELTO) 20 Mg Tab, 1 TAB PO DAILY, #30 TAB 11 Refills 07/04/17 Amiodarone Hcl (Amiodarone Hcl) 200 Mg Tab, 1 TAB PO DAILY, #90 TAB 1 Refill 07/03/14 [Proventyl] No Conflict Check, 1 PUFF INH BID 06/07/11 [Pro Air] No Conflict Check, 1 INH DAILYP 06/07/11 Ezetimibe (Zetia) 10 Mg Tab, 10 MG BC DAILY 06/13/10 Montelukast Sodium (Singulair) 10 Mg Tab 06/13/10 Plan/Recommendation poor historian with high risk nstemi pt had gi bleed in december 2023 he had cath done jul 2022 and i reviewed his reports at [facility] and was tx to scri pps for some type of intervention hold doac for now possible [facility] Plan discussed with: Patient, Other (rn) [facility] T[employer] SPECIALIST Jun 28, 2024 10:07 BLANCO PALOMINO MD Jun 28, 2024 18:32
[2024-06-28 10:25] LABS: HDL Cholesterol 49 mg/dL (40-59)
[2024-06-28 10:26] LABS: Cholesterol 200 mg/dL (< 200)
[2024-06-28] MEDS: FUROSEMIDE 40 MG/4 ML VIAL IV SCH (10:26)
[2024-06-28 10:32] LABS: LDL Cholesterol 127 mg/dL (< 100); Triglycerides 160 mg/dL (< 150)
[2024-06-28] MEDS: FUROSEMIDE 20 MG/2 ML VIAL IV ONE (10:45)
[2024-06-28 10:56] LABS: INR 1.08 (0.9-1.15); Partial Thromboplastin Time 23.4 SEC (24.5-34.5); Prothrombin Time 11.4 sec (9.3-11.8)
[2024-06-28] MEDS: HEPARIN SODIUM (PORCINE) 5000 UNITS/ML 1ML VIAL IV ONE (12:58)
[2024-06-28] MEDS: HEPARIN DRIP/D5W 100UNITS/ML 250 ML IV SCH (13:00)
[2024-06-28] MEDS: CLOPIDOGREL BISULFATE 75 MG TAB PO ONE (13:06)
[2024-06-28] MEDS ORDERED: ROSU10TA16 PO (14:01)
--- NOTE | 2024-06-28 14:17 | MEDREC ---
[facility] Intervention Section I [facility] Intervention: Review courses of therapy (PLEASE CONSIDER SWITCHING AZITHROMYCIN TO DOXYCYCLINE DUE TO QT PROLONGATION (QTc 519) ) MIHAELA FARRIS Jun 28, 2024 14:17
--- NOTE | 2024-06-28 14:45 | DVHPN2 ---
Reviewed: Care Plan, H&P, Labs, Medications, Previous Orders, Radiology Changes from previous H/P or p: No Changes Eyes: No Pain, No Vision change, No Conjunctivae inflammation, No Eyelid inflammation, No Other, No Redness ENT: No Ear pain, No Ear discharge, No Nose pain, No Nose discharge, No Nose congestion, No Mouth pain, No Mouth swelling, No Throat pain, No Throat swelling, No Other Cardiovascular: Chest Pain, Palpitations; No Orthopnea, No Paroxysmal Noc. Dyspnea, No Edema, No Lt Headedness, No Other Respiratory: Cough; No Dry; Shortness of breath; No SOB with excertion, No Wheezing, No Hemoptysis, No Pleuritic Pain, No Sputum, No Other Gastrointestinal: No Nausea, No Vomiting, No Abdominal Pain, No Diarrhea, No Constipation, No Melena, No Hematochezia, No Other Genitourinary: No Dysuria, No Frequency, No Incontinence, No Hematuria, No Retention, No Other Musculoskeletal: No other, No neck pain, No shoulder pain, No arm pain, No back pain, No hand pain, No leg pain, No foot pain Skin: No Rash, No Lesions, No Jaundice, No Bruising, No Other Objective Vitals Vital Signs Date Time Temp Pulse Resp B/P (MAP) Pulse Ox O2 Delivery O2 Flow Rate FiO2 06/28/24 10:45 134/79 06/28/24 09:52 78 06/28/24 07:20 93 Nasal Cannula* 3 32 06/28/24 05:00 98.0 19 98.0 Intake/Output Intake and Output 06/28/24 07:00 Intake Total 150 ml Output Total 900 ml Balance -750 ml Intake Oral 150 ml Output Urine Total 900 ml Medications Current Medications Medications Dose Ordered Sig/Sebas Route Start Time Stop Time Status Last Admin Dose Admin Ceftriaxone Sodium 50 ml @ 100 mls/hr Q24H IV 06/28/24 21:00 Azithromycin 500 mg Q24H PO 06/28/24 21:00 Albuterol 2.5 mg Q4HWA PRN NEB 06/27/24 19:15 Ipratropium [place] 0.5 mg Q4HPRN PRN NEB 06/27/24 19:15 Amiodarone HCl 200 mg DAILY PO 06/28/24 10:00 06/28/24 09:51 200 MG EZETIMIBE 10 mg QHSP PO 06/27/24 22:00 Pantoprazole Sodium 40 mg BID PO 06/27/24 22:00 06/28/24 09:47 40 MG Venlafaxine HCl 150 mg DAILY PO 06/28/24 10:00 Acetaminophen 650 mg Q6HP PRN PO 06/27/24 19:15 Zolpidem Tartrate 5 mg QHSP PRN PO 06/27/24 19:15 06/28/24 03:40 5 MG Lorazepam 0.5 mg Q6HP PRN PO 06/27/24 19:15 Docusate Sodium 100 mg DAILY PO 06/28/24 10:00 06/28/24 09:45 100 MG Ondansetron HCl 4 mg Q4HP PRN IV 06/27/24 19:15 Nitroglycerin 0.4 mg Q5MINP PRN SL 06/27/24 19:15 Morphine Sulfate 2 mg Q30M PRN IV 06/27/24 19:15 Diagnostic Test (Pha) 1 strip IQ4HR 06/27/24 20:00 06/28/24 12:20 1 STRIP Insulin Human Regular IQ4HR SC 06/27/24 20:00 Dextrose 50 ml UD PRN IV 06/27/24 19:15 Atorvastatin Calcium 40 mg HS PO 06/28/24 18:00 Metoprolol Succinate 25 mg DAILY PO 06/29/24 10:00 Heparin Sodium/ Dextrose 250 ml @ 10 mls/hr Q24H IV 06/28/24 10:00 06/28/24 13:00 10 MLS/HR Clopidogrel Bisulfate 75 mg DAILY PO 06/29/24 10:00 Lisinopril 5 mg DAILY PO 06/29/24 10:00 Spironolactone 12.5 mg DAILY PO 06/29/24 10:00 Empaglifozin 10 mg DAILY PO 06/29/24 10:00 Furosemide 20 mg BIDD IV 06/28/24 18:00 Laboratory Results Laboratory Tests 06/28/24 04:23 Chemistry Test 06/27/24 17:43 06/28/24 04:23 Albumin 4.1 g/dL (3.2-4.8) Calcium Level 10.2 mg/dL (8.7-10.4) 10.2 mg/dL (8.7-10.4) Magnesium Level 1.9 mg/dL (1.6-2.6) Phosphorus Level 3.6 mg/dL (2.4-5.1) Total Protein 6.5 g/dL (5.7-8.2) Coagulation Test 06/28/24 10:26 Prothrombin Time 11.4 sec (9.3-11.8) Prothrombin Time INR 1.08 (0.9-1.15) Activated Partial Thromboplast Time 23.4 SEC (24.5-34.5) L Lipid panel Test 06/28/24 04:23 Cholesterol Level 200 mg/dL (< 200) H HDL Cholesterol 49 mg/dL (40-59) Triglycerides Level 160 mg/dL (< 150) H Cardiac Markers Test 06/27/24 17:43 06/28/24 04:23 B-Type Natriuretic Peptide 897.69 pg/mL (0-100) 721.57 pg/mL (0-100) LFT Test 06/27/24 17:43 Alanine Aminotransferase (ALT) 10 U/L (7-40) Alkaline Phosphatase 78 U/L (46-116) Aspartate Amino Transferase (AST) 19 U/L (13-40) Total Bilirubin 0.6 mg/dL (0.2-1.0) HgA1c, TSH Test 06/28/24 04:23 Hemoglobin A1c 5.5 % A1C (<5.7) Thyroid Stimulating Hormone (TSH) 0.84 uIU/mL (0.55-4.78) Urinalysis Test 06/27/24 21:30 Urine Color Colorless (Yellow) Urine Clarity Clear (Clear) Urine pH 5.0 (5.0-9.0) Urine Specific [place] 1.008 (1.001-1.035) Urine Protein Negative (Negative) Urine Ketones Negative (Negative) Urine Blood Negative /uL (Negative) Urine Nitrite Negative (Negative) Urine Bilirubin Negative (Negative) Urine Urobilinogen Normal mg/dL (Negative) Urine Leukocyte Esterase Negative /uL (Negative) Urine RBC <1 /hpf (0 - 3) Urine WBC 1 /hpf (0 - 3) Urine Squamous Epithelial Cells None seen /hpf (<5) Urine Bacteria None seen /hpf (None Seen) Urine Hyaline Casts Mod /lpf (0 - 2) Urine Glucose 1+ mg/dL (Normal) H Blood Gas Results Test 06/27/24 17:27 Arterial Blood pH 7.346 (7.350-7.450) FiO2 % 50.0 Labs and/or images reviewed: Labs reviewed by me, Image(s) reviewed by me Assessment/Plan Assessment/Plan NSTEMI rule out in-stent restenosis/progressive coronary artery disease Coronary artery disease status post multiple PCIs including 5-6DES at [facility] two months ago Last appointment with his business information manager 3 weeks back Acute on chronic decompensated HFrEF, HYHA Class IV Ischemic cardiomyopathy ?LVEF Paroxysmal atrial fibrillation, on Xarelto/amiodarone therapy Acute on chronic hypoxic respiratory failure with COPD exacerbation Presence of BiV-AICD ([employer]) Hypertension Dyslipidemia Hard of hearing Continue all current meds Time Spent 75 minutes Patient is full code Advanced care planning time 20 minutes Scheduled for left heart catheterization by Dr. Graff on 06/30/[address] Kailyn Em Plan discussed with: Patient Date of Service: Jun 28, 2024 Billing Provider: ZANDER AGUIAR MD Common Visit Codes: [id number] CARE 30-74 MIN ZANDER AGUIAR MD Jun 28, 2024 14:45
[2024-06-28] MEDS: ACETAMINOPHEN 325 MG TAB PO PRN (16:35)
--- NOTE | 2024-06-28 17:01 | DVHSR ---
APPROVED REPORT EXAM: LIMITED Two-dimensional and M-mode echocardiogram. Blood Pressure: 134/79 mmHg INDICATION NSTEMI Surgery/Intervention Pacemaker: RISK FACTORS Height: 5' 8", Weight: 180 DIMENSIONS LVDd5.4 (3.8-5.7cm)LA (2D)4.0 (1.9-4.0cm)Aortic Root3.8 (2.0-3.7cm) LVDs4.8 (2.5-4.0cm)LA (MM) (1.9-4.0cm)Aortic Cusp Exc1.5 (1.5-2.0cm) EF (%) 25.0 (55-70%)Rt. Atrium3.4 (1.9-4.0cm)Asc. Aorta cm Mitral Valve MitralMitral Stenosis E wave0.80m/sMV Mean GR.mmHg E/A ratio0.02D MVAcm2 Aortic Valve Aortic ValveAortic Stenosis V10.60m/Leah Mean GR.3mmHg V21.00m/Leah Peak GR.5mmHg LVOT Diameter2.3 (1.8-2.4cm)Doppler AVA2.49cm2 Tricuspid Valve TR Velocity3.10m/s [id number] Other Information Quality : Technically LimitedRhythm : Technically limited study due to body habitus. 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
[2024-06-28] MEDS: FUROSEMIDE 20 MG/2 ML VIAL IV SCH (18:00)
[2024-06-28 19:25] LABS: INR 1.09 (0.9-1.15); Partial Thromboplastin Time 38.3 SEC (24.5-34.5); Prothrombin Time 11.5 sec (9.3-11.8)
[2024-06-28] MEDS: AMIODARONE HCL 200 MG TAB PO ONE (21:00)
[2024-06-28] MEDS: dilTIAZem 25 MG/5 ML VIAL IV ONE (21:00)
[2024-06-28] MEDS: AZITHROMYCIN 250 MG TAB PO SCH (21:22)
[2024-06-28] MEDS: cefTRIAXone 1GM/50ML D5W 50 ML IV SCH (21:22)
[2024-06-29] VITALS (11 sets, daily range): BP systolic 120–143; BP diastolic 81–95; PULSE 58–118; RESP 17–22; TEMP 91.2–98.7; O2SAT 97–100
[2024-06-29 02:18] LABS: INR 1.08 (0.9-1.15); Partial Thromboplastin Time 46.9 SEC (24.5-34.5); Prothrombin Time 11.4 sec (9.3-11.8)
[2024-06-29] MEDS ORDERED: HEPARIN DRIP/D5W 100UNITS/ML 250 ML IV SCH (02:30)
[2024-06-29] MEDS: HEPARIN DRIP/D5W 100UNITS/ML 250 ML IV SCH ×2 (02:41→09:30)
[2024-06-29 09:06] LABS: Basophils # (auto) 0.1 10 ^3/uL (0-0.2); Eosinophils # (auto) 0.1 10 ^3/uL (0-0.8); Hemoglobin 10.7 g/dL (13.5-17.5); Lymphocytes # (auto) 0.7 10 ^3/uL (0.4-5.4); Monocytes # (auto) 0.9 10 ^3/uL (0-1.3); Neutrophils # (auto) 4.8 10 ^3/uL (1.6-8.6); Red Cell Distribution Width 19.1 % (11.8-14.3); White Blood Cell 6.6 10^3/uL (4.4-10.8)
[2024-06-29 09:08] LABS: Basophils % (auto) 1.2 % (0.0-2.0); Eosinophils % (auto) 2.1 % (0.0-7.0); Hematocrit 33.2 % (41.0-53.0); Lymphocytes % (auto) 10.8 % (10.0-50.0); Mean Corpuscular Hemoglobin 24.9 pg (28.0-32.0); Mean Corpuscular Hgb Conc. 32.2 g/dL (32.0-36.0); Mean Corpuscular Volume 77.3 fL (80.0-100.0); Monocytes % (auto) 13.2 % (0.0-12.0); Neutrophils % (auto) 72.7 % (37.0-80.0); Nucleated Red Blood Cells % 0.1 %; Platelet Count (auto) 175 10^3/uL (140-450); Red Blood Cells 4.29 10^6/uL (4.5-5.90)
[2024-06-29 09:23] LABS: INR 1.12 (0.9-1.15); Partial Thromboplastin Time 60.8 SEC (24.5-34.5); Prothrombin Time 11.8 sec (9.3-11.8)
--- NOTE | 2024-06-29 09:26 | DVHPN2 ---
Progress Note Date Seen: Jun 29, 2024 Medical Necessity Reason Pt with a Central, PICC or Fol: No Subjective Other Systems: pt sleeping this AM Objective vital signs Vital Sign Date Time Temp Pulse Resp B/P (MAP) Pulse Ox O2 Delivery O2 Flow Rate FiO2 06/29/24 09:11 97.4 104 18 143/81 (101) 100 97.4 06/29/24 08:15 Nasal Cannula* 2 28 Total Intake and Output 06/28/24 06/28/24 06/29/24 15:00 23:00 07:00 Intake Total 920 ml 552 ml Output Total 800 ml 325 ml Balance 120 ml 227 ml medications Current Medications Medications Dose Ordered Sig/Sebas Route Start Time Stop Time Status Last Admin Dose Admin Ceftriaxone Sodium 50 ml @ 100 mls/hr Q24H IV 06/28/24 21:00 06/28/24 21:22 100 MLS/HR Azithromycin 500 mg Q24H PO 06/28/24 21:00 06/28/24 21:22 500 MG Albuterol 2.5 mg Q4HWA PRN NEB 06/27/24 19:15 Ipratropium [place] 0.5 mg Q4HPRN PRN NEB 06/27/24 19:15 EZETIMIBE 10 mg QHSP PO 06/27/24 22:00 06/28/24 21:26 10 MG Pantoprazole Sodium 40 mg BID PO 06/27/24 22:00 06/28/24 21:26 40 MG Venlafaxine HCl 150 mg DAILY PO 06/28/24 10:00 Acetaminophen 650 mg Q6HP PRN PO 06/27/24 19:15 06/29/24 00:05 650 MG Zolpidem Tartrate 5 mg QHSP PRN PO 06/27/24 19:15 06/28/24 03:40 5 MG Lorazepam 0.5 mg Q6HP PRN PO 06/27/24 19:15 Docusate Sodium 100 mg DAILY PO 06/28/24 10:00 06/28/24 09:45 100 MG Ondansetron HCl 4 mg Q4HP PRN IV 06/27/24 19:15 Nitroglycerin 0.4 mg Q5MINP PRN SL 06/27/24 19:15 Morphine Sulfate 2 mg Q30M PRN IV 06/27/24 19:15 Diagnostic Test (Pha) 1 strip IQ4HR 06/27/24 20:00 06/29/24 08:10 1 STRIP Insulin Human Regular IQ4HR SC 06/27/24 20:00 06/28/24 21:23 4 UNITS Dextrose 50 ml UD PRN IV 06/27/24 19:15 Atorvastatin Calcium 40 mg HS PO 06/28/24 18:00 06/28/24 18:00 40 MG Metoprolol Succinate 25 mg DAILY PO 06/29/24 10:00 Clopidogrel Bisulfate 75 mg DAILY PO 06/29/24 10:00 Lisinopril 5 mg DAILY PO 06/29/24 10:00 Spironolactone 12.5 mg DAILY PO 06/29/24 10:00 Empaglifozin 10 mg DAILY PO 06/29/24 10:00 Furosemide 20 mg BIDD IV 06/28/24 18:00 06/29/24 05:48 20 MG Amiodarone HCl 200 mg BID PO 06/29/24 10:00 Heparin Sodium/ Dextrose 250 ml @ 14 mls/hr [id number] IV 06/29/24 02:45 06/29/24 05:55 14 MLS/HR Examination: GENERAL:Abnormal, HEENT:Abnormal, LUNGS:Abnormal, CVS:Abnormal, ABDOMEN:Abnormal laboratory and microbiology Laboratory Tests 06/29/24 08:41 06/28/24 04:23 Test 06/28/24 04:23 Range/Units Serum Glucose 109 #H 74-106 mg/dL Problem List/Assessment/Plan Problem List/Assessment/Plan nstemi afib hx of gi bleed hx of cad s/p pci htn obesity copd [facility] tomorrow high risk pt given hx of complex pci afib rvr-iv digoxin x 1 now Plan discussed with: Patient Date of Service: Jun 29, 2024 Billing Provider: BLANCO PALOMINO MD Common Visit Codes: NOT BILLABLE BLANCO PALOMINO MD Jun 29, 2024 09:25
[2024-06-29] MEDS: METOPROLOL SUCCINATE XL 50 MG TAB PO SCH (10:00)
[2024-06-29] MEDS: SPIRONOLACTONE 25 MG TAB PO SCH (10:10)
[2024-06-29] MEDS: AMIODARONE HCL 200 MG TAB PO SCH (10:10)
[2024-06-29] MEDS: CLOPIDOGREL BISULFATE 75 MG TAB PO SCH (10:12)
[2024-06-29] MEDS: EMPAGLIFLOZIN 10 MG TAB PO SCH (10:13)
[2024-06-29] MEDS: LISINOPRIL 5 MG TAB PO SCH (10:14)
--- NOTE | 2024-06-29 12:24 | DVHPN2 ---
Reviewed: Care Plan, H&P, Labs, Medications, Previous Orders, Radiology Changes from previous H/P or p: No Changes Eyes: No Pain, No Vision change, No Conjunctivae inflammation, No Eyelid inflammation, No Other, No Redness ENT: No Ear pain, No Ear discharge, No Nose pain, No Nose discharge, No Nose congestion, No Mouth pain, No Mouth swelling, No Throat pain, No Throat swelling, No Other Cardiovascular: Chest Pain, Palpitations; No Orthopnea, No Paroxysmal Noc. Dyspnea, No Edema, No Lt Headedness, No Other Respiratory: Cough; No Dry; Shortness of breath; No SOB with excertion, No Wheezing, No Hemoptysis, No Pleuritic Pain, No Sputum, No Other Gastrointestinal: No Nausea, No Vomiting, No Abdominal Pain, No Diarrhea, No Constipation, No Melena, No Hematochezia, No Other Genitourinary: No Dysuria, No Frequency, No Incontinence, No Hematuria, No Retention, No Other Musculoskeletal: No other, No neck pain, No shoulder pain, No arm pain, No back pain, No hand pain, No leg pain, No foot pain Skin: No Rash, No Lesions, No Jaundice, No Bruising, No Other Objective Vitals Vital Signs Date Time Temp Pulse Resp B/P (MAP) Pulse Ox O2 Delivery O2 Flow Rate FiO2 06/29/24 10:14 143/81 06/29/24 09:11 97.4 104 18 100 97.4 06/29/24 08:15 Nasal Cannula* 2 28 Intake/Output Intake and Output 06/29/24 07:00 Intake Total 1472 ml Output Total 1125 ml Balance 347 ml Intake Oral 1100 ml IV Total 372 ml Output Urine Total 1125 ml # Bowel Movements 1 Medications Current Medications Medications Dose Ordered Sig/Sebas Route Start Time Stop Time Status Last Admin Dose Admin Ceftriaxone Sodium 50 ml @ 100 mls/hr Q24H IV 06/28/24 21:00 06/28/24 21:22 100 MLS/HR Azithromycin 500 mg Q24H PO 06/28/24 21:00 06/28/24 21:22 500 MG Albuterol 2.5 mg Q4HWA PRN NEB 06/27/24 19:15 Ipratropium [place] 0.5 mg Q4HPRN PRN NEB 06/27/24 19:15 EZETIMIBE 10 mg QHSP PO 06/27/24 22:00 06/28/24 21:26 10 MG Pantoprazole Sodium 40 mg BID PO 06/27/24 22:00 06/29/24 10:10 40 MG Venlafaxine HCl 150 mg DAILY PO 06/28/24 10:00 Acetaminophen 650 mg Q6HP PRN PO 06/27/24 19:15 06/29/24 00:05 650 MG Zolpidem Tartrate 5 mg QHSP PRN PO 06/27/24 19:15 06/28/24 03:40 5 MG Lorazepam 0.5 mg Q6HP PRN PO 06/27/24 19:15 Docusate Sodium 100 mg DAILY PO 06/28/24 10:00 06/29/24 10:11 100 MG Ondansetron HCl 4 mg Q4HP PRN IV 06/27/24 19:15 Nitroglycerin 0.4 mg Q5MINP PRN SL 06/27/24 19:15 Morphine Sulfate 2 mg Q30M PRN IV 06/27/24 19:15 Diagnostic Test (Pha) 1 strip IQ4HR 06/27/24 20:00 06/29/24 11:52 1 STRIP Insulin Human Regular IQ4HR SC 06/27/24 20:00 06/28/24 21:23 4 UNITS Dextrose 50 ml UD PRN IV 06/27/24 19:15 Atorvastatin Calcium 40 mg HS PO 06/28/24 18:00 06/28/24 18:00 40 MG Metoprolol Succinate 25 mg DAILY PO 06/29/24 10:00 Clopidogrel Bisulfate 75 mg DAILY PO 06/29/24 10:00 06/29/24 10:12 75 MG Lisinopril 5 mg DAILY PO 06/29/24 10:00 06/29/24 10:14 5 MG Spironolactone 12.5 mg DAILY PO 06/29/24 10:00 06/29/24 10:10 12.5 MG Empaglifozin 10 mg DAILY PO 06/29/24 10:00 06/29/24 10:13 10 MG Furosemide 20 mg BIDD IV 06/28/24 18:00 06/29/24 05:48 20 MG Amiodarone HCl 200 mg BID PO 06/29/24 10:00 06/29/24 10:10 200 MG Heparin Sodium/ Dextrose 250 ml @ 14 mls/hr [id number] IV 06/29/24 09:30 06/29/24 23:59 Laboratory Results Laboratory Tests 06/28/24 04:23 06/29/24 08:41 Coagulation Test 06/28/24 19:00 06/29/24 01:53 06/29/24 08:41 Prothrombin Time 11.5 sec (9.3-11.8) 11.4 sec (9.3-11.8) 11.8 sec (9.3-11.8) Prothrombin Time INR 1.09 (0.9-1.15) 1.08 (0.9-1.15) 1.12 (0.9-1.15) Activated Partial Thromboplast Time 38.3 SEC (24.5-34.5) H 46.9 SEC (24.5-34.5) H 60.8 SEC (24.5-34.5) H Urinalysis Test 06/27/24 21:30 Urine Color Colorless (Yellow) Urine Clarity Clear (Clear) Urine pH 5.0 (5.0-9.0) Urine Specific [place] 1.008 (1.001-1.035) Urine Protein Negative (Negative) Urine Ketones Negative (Negative) Urine Blood Negative /uL (Negative) Urine Nitrite Negative (Negative) Urine Bilirubin Negative (Negative) Urine Urobilinogen Normal mg/dL (Negative) Urine Leukocyte Esterase Negative /uL (Negative) Urine RBC <1 /hpf (0 - 3) Urine WBC 1 /hpf (0 - 3) Urine Squamous Epithelial Cells None seen /hpf (<5) Urine Bacteria None seen /hpf (None Seen) Urine Hyaline Casts Mod /lpf (0 - 2) Urine Glucose 1+ mg/dL (Normal) H Labs and/or images reviewed: Labs reviewed by me, Image(s) reviewed by me Assessment/Plan Assessment/Plan NSTEMI rule out in-stent restenosis/progressive coronary artery disease Coronary artery disease status post multiple PCIs including 5-6DES at [facility] two months ago Last 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 Graff on 06/30/[address] Kailyn Em [facility] [phone] at bedside Plan discussed with: Patient Date of Service: Jun 29, 2024 Billing Provider: ZANDER AGUIAR MD Common Visit Codes: [id number] INP/OBS CARE(HIGH) ZANDER AGUIAR MD Jun 29, 2024 12:24
[2024-06-29 17:53] LABS: INR 1.13 (0.9-1.15); Partial Thromboplastin Time 51.4 SEC (24.5-34.5); Prothrombin Time 11.9 sec (9.3-11.8)
[2024-06-30] VITALS (17 sets, daily range): BP systolic 83–149; BP diastolic 36–94; PULSE 100–132; RESP 12–22; TEMP 97.1–98.4; O2SAT 97–100
[2024-06-30] MEDS: HEPARIN IN NS 1000Units/500mL 1,500 ML ONE (13:10)
[2024-06-30] MEDS: IODIXANOL 320MG/ML 100ML BTL IV ONE (13:10)
[2024-06-30] MEDS: VERAPAMIL 2.5MG/ML INJ 2ML VIAL IV ONE (13:20)
[2024-06-30] MEDS: ANGIOMAX 250 MG VIAL IV ONE (13:20)
[2024-06-30] MEDS: HEPARIN SODIUM (PORCINE) 5000 UNITS/ML 1ML VIAL ONE (13:20)
[2024-06-30] MEDS: fentaNYL CITRATE 100 MCG/2 ML VL ONE (13:21)
[2024-06-30] MEDS: SODIUM CHL 0.9% 0 ML ONE (13:21)
[2024-06-30] MEDS: MIDAZOLAM HCL 2MG/2ML 2ml VIAL (1mg/ml) ONE (13:21)
[2024-06-30] MEDS: LIDOCAINE 2%HCL (LOCAL ANESTH.) INJ 20ML MDV ONE (13:21)
--- NOTE | 2024-06-30 13:49 | DVHPN2 ---
Reviewed: Care Plan, H&P, Labs, Medications, Previous Orders, Radiology Changes from previous H/P or p: No Changes Eyes: No Pain, No Vision change, No Conjunctivae inflammation, No Eyelid inflammation, No Other, No Redness ENT: No Ear pain, No Ear discharge, No Nose pain, No Nose discharge, No Nose congestion, No Mouth pain, No Mouth swelling, No Throat pain, No Throat swelling, No Other Cardiovascular: Chest Pain, Palpitations; No Orthopnea, No Paroxysmal Noc. Dyspnea, No Edema, No Lt Headedness, No Other Respiratory: Cough; No Dry; Shortness of breath; No SOB with excertion, No Wheezing, No Hemoptysis, No Pleuritic Pain, No Sputum, No Other Gastrointestinal: No Nausea, No Vomiting, No Abdominal Pain, No Diarrhea, No Constipation, No Melena, No Hematochezia, No Other Genitourinary: No Dysuria, No Frequency, No Incontinence, No Hematuria, No Retention, No Other Musculoskeletal: No other, No neck pain, No shoulder pain, No arm pain, No back pain, No hand pain, No leg pain, No foot pain Skin: No Rash, No Lesions, No Jaundice, No Bruising, No Other Objective Vitals Vital Signs Date Time Temp Pulse Resp B/P (MAP) Pulse Ox O2 Delivery O2 Flow Rate FiO2 06/30/24 13:00 98.2 107 19 125/56 (79) 98 98.2 06/30/24 08:15 Nasal Cannula* 2 28 Intake/Output Intake and Output 06/30/24 07:00 Intake Total 900 ml Output Total 200 ml Balance 700 ml Intake Oral 600 ml IV Total 300 ml Output Urine Total 200 ml # Bowel Movements 2 Medications Current Medications Medications Dose Ordered Sig/Seb[place] Route Start Time Stop Time Status Last Admin Dose Admin Ceftriaxone Sodium 50 ml @ 100 mls/hr Q24H IV 06/28/24 21:00 06/29/24 21:19 100 MLS/HR Azithromycin 500 mg Q24H PO 06/28/24 21:00 06/29/24 21:18 500 MG EZETIMIBE 10 mg QHSP PO 06/27/24 22:00 06/29/24 21:19 10 MG Pantoprazole Sodium 40 mg BID PO 06/27/24 22:00 06/29/24 21:21 40 MG Venlafaxine HCl 150 mg DAILY PO 06/28/24 10:00 Acetaminophen 650 mg Q6HP PRN PO 06/27/24 19:15 06/30/24 00:50 650 MG Zolpidem Tartrate 5 mg QHSP PRN PO 06/27/24 19:15 06/28/24 03:40 5 MG Lorazepam 0.5 mg Q6HP PRN PO 06/27/24 19:15 Docusate Sodium 100 mg DAILY PO 06/28/24 10:00 06/29/24 10:11 100 MG Ondansetron HCl 4 mg Q4HP PRN IV 06/27/24 19:15 Nitroglycerin 0.4 mg Q5MINP PRN SL 06/27/24 19:15 Morphine Sulfate 2 mg Q30M PRN IV 06/27/24 19:15 Diagnostic Test (Pha) 1 strip IQ4HR 06/27/24 20:00 06/30/24 12:00 1 STRIP Insulin Human Regular IQ4HR SC 06/27/24 20:00 06/28/24 21:23 4 UNITS Dextrose 50 ml UD PRN IV 06/27/24 19:15 Atorvastatin Calcium 40 mg HS PO 06/28/24 18:00 06/29/24 21:18 40 MG Metoprolol Succinate 25 mg DAILY PO 06/29/24 10:00 Clopidogrel Bisulfate 75 mg DAILY PO 06/29/24 10:00 06/29/24 10:12 75 MG Lisinopril 5 mg DAILY PO 06/29/24 10:00 06/29/24 10:14 5 MG Spironolactone 12.5 mg DAILY PO 06/29/24 10:00 06/29/24 10:10 12.5 MG Empaglifozin 10 mg DAILY PO 06/29/24 10:00 06/29/24 10:13 10 MG Furosemide 20 mg BIDD IV 06/28/24 18:00 06/29/24 18:45 20 MG Amiodarone HCl 200 mg BID PO 06/29/24 10:00 06/29/24 21:19 200 MG Laboratory Results Laboratory Tests 06/28/24 04:23 06/29/24 08:41 Coagulation Test 06/29/24 17:19 Prothrombin Time 11.9 sec (9.3-11.8) H Prothrombin Time INR 1.13 (0.9-1.15) Activated Partial Thromboplast Time 51.4 SEC (24.5-34.5) H Urinalysis Test 06/27/24 21:30 Urine Color Colorless (Yellow) Urine Clarity Clear (Clear) Urine pH 5.0 (5.0-9.0) Urine Specific [place] 1.008 (1.001-1.035) Urine Protein Negative (Negative) Urine Ketones Negative (Negative) Urine Blood Negative /uL (Negative) Urine Nitrite Negative (Negative) Urine Bilirubin Negative (Negative) Urine Urobilinogen Normal mg/dL (Negative) Urine Leukocyte Esterase Negative /uL (Negative) Urine RBC <1 /hpf (0 - 3) Urine WBC 1 /hpf (0 - 3) Urine Squamous Epithelial Cells None seen /hpf (<5) Urine Bacteria None seen /hpf (None Seen) Urine Hyaline Casts Mod /lpf (0 - 2) Urine Glucose 1+ mg/dL (Normal) H Labs and/or images reviewed: Labs reviewed by me, Image(s) reviewed by me Assessment/Plan Assessment/Plan NSTEMI rule out in-stent restenosis/progressive coronary artery disease Coronary artery disease status post multiple PCIs including 5-6DES at [facility] two months ago Last 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 Graff on 06/30/[address] Kailyn Em [facility] [phone] at bedside Plan discussed with: Patient Date of Service: Jun 30, 2024 Billing Provider: ZANDER AGUIAR MD Common Visit Codes: [id number] INP/OBS CARE(HIGH) ZANDER AGUIAR MD Jun 30, 2024 13:49
--- NOTE | 2024-06-30 14:10 | DVHPN2 ---
Progress Note Date Seen: Jun 30, 2024 Medical Necessity Reason Pt with a Central, PICC or Fol: No Subjective Patient reports: Feels better Other Systems: sp cath has patent LAD stent Objective vital signs Vital Sign Date Time Temp Pulse Resp B/P (MAP) Pulse Ox O2 Delivery O2 Flow Rate FiO2 06/30/24 13:00 98.2 107 19 125/56 (79) 98 98.2 06/30/24 08:15 Nasal Cannula* 2 28 Total Intake and Output 06/29/24 06/29/24 06/30/24 15:00 23:00 07:00 Intake Total 350 ml 550 ml Output Total 100 ml 100 ml Balance 250 ml 450 ml medications Current Medications Medications Dose Ordered Sig/Seb[place] Route Start Time Stop Time Status Last Admin Dose Admin Ceftriaxone Sodium 50 ml @ 100 mls/hr Q24H IV 06/28/24 21:00 06/29/24 21:19 100 MLS/HR Azithromycin 500 mg Q24H PO 06/28/24 21:00 06/29/24 21:18 500 MG EZETIMIBE 10 mg QHSP PO 06/27/24 22:00 06/29/24 21:19 10 MG Pantoprazole Sodium 40 mg BID PO 06/27/24 22:00 06/29/24 21:21 40 MG Venlafaxine HCl 150 mg DAILY PO 06/28/24 10:00 Acetaminophen 650 mg Q6HP PRN PO 06/27/24 19:15 06/30/24 00:50 650 MG Zolpidem Tartrate 5 mg QHSP PRN PO 06/27/24 19:15 06/28/24 03:40 5 MG Lorazepam 0.5 mg Q6HP PRN PO 06/27/24 19:15 Docusate Sodium 100 mg DAILY PO 06/28/24 10:00 06/29/24 10:11 100 MG Ondansetron HCl 4 mg Q4HP PRN IV 06/27/24 19:15 Nitroglycerin 0.4 mg Q5MINP PRN SL 06/27/24 19:15 Morphine Sulfate 2 mg Q30M PRN IV 06/27/24 19:15 Diagnostic Test (Pha) 1 strip IQ4HR 06/27/24 20:00 06/30/24 12:00 1 STRIP Insulin Human Regular IQ4HR SC 06/27/24 20:00 06/28/24 21:23 4 UNITS Dextrose 50 ml UD PRN IV 06/27/24 19:15 Atorvastatin Calcium 40 mg HS PO 06/28/24 18:00 06/29/24 21:18 40 MG Metoprolol Succinate 25 mg DAILY PO 06/29/24 10:00 Clopidogrel Bisulfate 75 mg DAILY PO 06/29/24 10:00 06/29/24 10:12 75 MG Lisinopril 5 mg DAILY PO 06/29/24 10:00 06/29/24 10:14 5 MG Spironolactone 12.5 mg DAILY PO 06/29/24 10:00 06/29/24 10:10 12.5 MG Empaglifozin 10 mg DAILY PO 06/29/24 10:00 06/29/24 10:13 10 MG Furosemide 20 mg BIDD IV 06/28/24 18:00 06/29/24 18:45 20 MG Amiodarone HCl 200 mg BID PO 06/29/24 10:00 06/29/24 21:19 200 MG Examination: GENERAL:Abnormal, HEENT:Abnormal, LUNGS:Abnormal, CVS:Abnormal, ABDOMEN:Abnormal laboratory and microbiology Laboratory Tests 06/29/24 08:41 06/28/24 04:23 Test 06/28/24 04:23 Range/Units Serum Glucose 109 #H 74-106 mg/dL Problem List/Assessment/Plan Problem List/Assessment/Plan nstemi afib hx of gi bleed hx of cad s/p pci htn obesity copd [facility] tomorrow high risk pt given hx of complex pci afib rvr-iv digoxin x 1 now severe pad --noted on R leg angio [facility] 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
--- NOTE | 2024-06-30 15:30 | DVHOP ---
DATE OF SURGERY: 06/30/2024 OPERATING PHYSICIAN: Reinaldo Graff MD PREOPERATIVE DIAGNOSIS: [id number] myocardial infarction. POSTOPERATIVE DIAGNOSIS: [id number] myocardial infarction. PROCEDURES PERFORMED: * Conscious sedation administration and supervision less than 15 minutes as well as 15-30 minutes fluoroscopy use interpretation. * Ultrasound-guided vascular access. * Abdominal angiogram. * Lower extremity runoff. * Left heart catheterization. * Selective coronary angiogram. DESCRIPTION OF PROCEDURE: The patient's family signed informed consent, understanding risks and benefits, and alternatives of the procedure, he wished to proceed. He was brought to the produce laborer in [place] state. He was prepped in sterile fashion. The patient had extremely poor pulse of the right arm, which was not palpable at all. I used ultrasound-guided access, but I was unable to cannulate the right radial artery as when I did get access, there was extremely sluggish flow, likely from previous spasm, there I decided to abandon that attempt, the left wrist by exam had a very poor pulse as well. Therefore, I turned my attention to the right groin. The patient has a lot of clips in the right groin area under fluoroscopy. I am suspecting the patient may have had previous procedure done in that region, although the patient is not a good historian. I was unable to palpate a good right femoral pulse with ultrasound-guided access of the right common femoral artery, which appeared to be stenosing disease. I was able to cannulate and place a 6-[place] sheath. At this point, An ipsilateral angiogram was performed showing appropriate arteriotomy site. The mid common femoral artery has about a 50% stenosis into the SFA and profunda. The right common iliac appears to have a 50% calcific stenosis, looking from the distal aorta above the right external iliac artery is patent and the right internal iliac artery is patent. At this point, with a Glidewire, I was able to cannulate and get into the ascending aorta and I used a 6-[place] JL4, JR4 for coronary angiogram and attempted left heart catheterization. FINDINGS: * RCA: RCA is a proximal RCA SENIOR QUALITY ENGINEER with antegrade collaterals. There are stents in the distal RCA. This was unchanged from previous angiogram at other institution. * Left main: Large left main bifurcates into LAD and circumflex with mild mid and distal plaque of about 10-15%. * Circumflex: Circumflex is patent in the proximal portion. It gives off several OM branches, laterally, which do feed to the RCA territory as well, as well as a distal LAD feeding to the RCA territory, the RPL. This is free of any severe disease. * LAD: LAD in the ostium and proximal portion is patent. There is a stent previously placed with a history of in-stent restenosis, status post some type of intervention at [facility]. It is widely patent. At this point, several diagonal branches coming off laterally in the mid to distal and to apical, LAD is free of any severe disease. The patient appeared to have dysrhythmia throughout the procedure with chronic AFib. LVEDP was attempted with a pigtail, but unable to perform likely secondary to aortic stenosis or sclerosis. At this point, all guides and wires were removed. The 6-[place] Mynx was used for closure and there were no immediate complications. CONCLUSIONS: * RCA SENIOR QUALITY ENGINEER, which is old and chronic. * Patent LAD stent previously placed years ago. * No severe left-sided disease. * Significant peripheral arterial disease noted to the right lower extremity. Reinaldo Graff MD CM/GIRISH TID: [id number] RECEIPT: [id number]
--- NOTE | 2024-06-30 18:08 | MEDREC ---
[facility] ASP Intervention Section I [facility] ASP Intervention: Review courses of therapy (CONSIDER D/C ANTIBIOTIC PLEASE (S) IN ABSENCE OF BACTERIAL INFECTION - FOR COPD EXCAERBATION CONSIDER DOXYCYCLINE FOR 5 TO 7 DAYS SINCE LAST QTC > 500) IGLESIA MCMAHON PHARMACIST Jun 30, 2024 18:08
[2024-06-30] MEDS: DIGOXIN (250MCG/ML) 2 ML AMPULE IV ONE (18:28)
[2024-06-30] MEDS: ONDANSETRON HCL 4 MG/2 ML VIAL IV PRN (19:55)
[2024-07-01] VITALS (10 sets, daily range): BP systolic 96–160; BP diastolic 55–83; PULSE 95–121; RESP 16–22; TEMP 97.6–99; O2SAT 99–100
--- NOTE | 2024-07-01 12:53 | DVHPN2 ---
Reviewed: Care Plan, H&P, Labs, Medications, Previous Orders, Radiology Changes from previous H/P or p: No Changes Eyes: No Pain, No Vision change, No Conjunctivae inflammation, No Eyelid inflammation, No Other, No Redness ENT: No Ear pain, No Ear discharge, No Nose pain, No Nose discharge, No Nose congestion, No Mouth pain, No Mouth swelling, No Throat pain, No Throat swelling, No Other Cardiovascular: Chest Pain, Palpitations; No Orthopnea, No Paroxysmal Noc. Dyspnea, No Edema, No Lt Headedness, No Other Respiratory: Cough; No Dry; Shortness of breath; No SOB with excertion, No Wheezing, No Hemoptysis, No Pleuritic Pain, No Sputum, No Other Gastrointestinal: No Nausea, No Vomiting, No Abdominal Pain, No Diarrhea, No Constipation, No Melena, No Hematochezia, No Other Genitourinary: No Dysuria, No Frequency, No Incontinence, No Hematuria, No Retention, No Other Musculoskeletal: No other, No neck pain, No shoulder pain, No arm pain, No back pain, No hand pain, No leg pain, No foot pain Skin: No Rash, No Lesions, No Jaundice, No Bruising, No Other Objective Vitals Vital Signs Date Time Temp Pulse Resp B/P (MAP) Pulse Ox O2 Delivery O2 Flow Rate FiO2 07/01/24 10:29 103 125/69 07/01/24 08:55 98.3 17 100 98.3 07/01/24 08:00 Nasal Cannula* 3 32 Intake/Output Intake and Output 07/01/24 07:00 Intake Total 1250 ml Output Total 650 ml Balance 600 ml Intake Oral 1250 ml Output Urine Total 650 ml # Bowel Movements 3 Medications Current Medications Medications Dose Ordered Sig/Sebas Route Start Time Stop Time Status Last Admin Dose Admin Ceftriaxone Sodium 50 ml @ 100 mls/hr Q24H IV 06/28/24 21:00 06/30/24 21:12 100 MLS/HR Azithromycin 500 mg Q24H PO 06/28/24 21:00 06/30/24 21:12 500 MG EZETIMIBE 10 mg QHSP PO 06/27/24 22:00 06/30/24 21:25 10 MG Pantoprazole Sodium 40 mg BID PO 06/27/24 22:00 07/01/24 10:29 40 MG Venlafaxine HCl 150 mg DAILY PO 06/28/24 10:00 07/01/24 10:27 150 MG Acetaminophen 650 mg Q6HP PRN PO 06/27/24 19:15 07/01/24 01:46 650 MG Zolpidem Tartrate 5 mg QHSP PRN PO 06/27/24 19:15 06/28/24 03:40 5 MG Lorazepam 0.5 mg Q6HP PRN PO 06/27/24 19:15 Docusate Sodium 100 mg DAILY PO 06/28/24 10:00 07/01/24 10:25 100 MG Ondansetron HCl 4 mg Q4HP PRN IV 06/27/24 19:15 06/30/24 19:55 4 MG Nitroglycerin 0.4 mg Q5MINP PRN SL 06/27/24 19:15 Morphine Sulfate 2 mg Q30M PRN IV 06/27/24 19:15 Diagnostic Test (Pha) 1 strip IQ4HR 06/27/24 20:00 07/01/24 12:18 1 STRIP Insulin Human Regular IQ4HR SC 06/27/24 20:00 06/28/24 21:23 4 UNITS Dextrose 50 ml UD PRN IV 06/27/24 19:15 Atorvastatin Calcium 40 mg HS PO 06/28/24 18:00 06/30/24 21:25 40 MG Metoprolol Succinate 25 mg DAILY PO 06/29/24 10:00 07/01/24 10:29 25 MG Clopidogrel Bisulfate 75 mg DAILY PO 06/29/24 10:00 07/01/24 10:27 75 MG Lisinopril 5 mg DAILY PO 06/29/24 10:00 07/01/24 10:28 5 MG Spironolactone 12.5 mg DAILY PO 06/29/24 10:00 07/01/24 10:25 12.5 MG Empaglifozin 10 mg DAILY PO 06/29/24 10:00 07/01/24 10:28 10 MG Furosemide 20 mg BIDD IV 06/28/24 18:00 07/01/24 05:31 20 MG Amiodarone HCl 200 mg BID PO 06/29/24 10:00 07/01/24 10:26 200 MG Laboratory Results Laboratory Tests 06/28/24 04:23 06/29/24 08:41 Urinalysis Test 06/27/24 21:30 Urine Color Colorless (Yellow) Urine Clarity Clear (Clear) Urine pH 5.0 (5.0-9.0) Urine Specific [place] 1.008 (1.001-1.035) Urine Protein Negative (Negative) Urine Ketones Negative (Negative) Urine Blood Negative /uL (Negative) Urine Nitrite Negative (Negative) Urine Bilirubin Negative (Negative) Urine Urobilinogen Normal mg/dL (Negative) Urine Leukocyte Esterase Negative /uL (Negative) Urine RBC <1 /hpf (0 - 3) Urine WBC 1 /hpf (0 - 3) Urine Squamous Epithelial Cells None seen /hpf (<5) Urine Bacteria None seen /hpf (None Seen) Urine Hyaline Casts Mod /lpf (0 - 2) Urine Glucose 1+ mg/dL (Normal) H Labs and/or images reviewed: Labs reviewed by me, Image(s) reviewed by me Assessment/Plan Assessment/Plan NSTEMI rule out in-stent restenosis/progressive coronary artery disease Coronary artery disease status post multiple PCIs including 5-6DES at [facility] two months ago Last appointment with his conservation scientist 3 weeks back Status post left heart catheterization by Dr. Graff on 06/30/2024 with the following findings * RCA MAIL WEIGHER, which is old and chronic. * Patent LAD stent previously placed years ago. * No severe left-sided disease. * Significant peripheral arterial disease noted to the right lower extremity. Acute on chronic decompensated HFrEF, HYHA Class IV Ischemic cardiomyopathy ?LVEF Paroxysmal atrial fibrillation, on Xarelto/amiodarone therapy Acute on chronic hypoxic respiratory failure with COPD exacerbation Presence of BiV-AICD ([employer]) Hypertension Dyslipidemia Hard of hearing Continue all current meds Time Spent 75 minutes Patient is full code Advanced care planning time 20 minutes Scheduled for left heart catheterization by Dr. Graff on 06/30/[address] Kailyn Em [facility] [phone] at bedside Physical therapy ordered Plan discussed with: Patient Date of Service: Jul 01, 2024 Billing Provider: ZANDER AGUIAR MD Common Visit Codes: [id number] INP/OBS CARE(HIGH) ZANDER AGUIAR MD Jul 01, 2024 12:53
--- NOTE | 2024-07-01 17:09 | DVHPN2 ---
Progress Note Date Seen: Jul 01, 2024 Medical Necessity Reason Pt with a Central, PICC or Fol: No Subjective Patient reports: Feels better Objective vital signs Vital Sign Date Time Temp Pulse Resp B/P (MAP) Pulse Ox O2 Delivery O2 Flow Rate FiO2 07/01/24 12:57 97.6 95 17 132/57 (82) 99 97.6 07/01/24 12:38 0.0 21 07/01/24 08:00 Nasal Cannula* Total Intake and Output 06/30/24 06/30/24 07/01/24 15:00 23:00 07:00 Intake Total 750 ml 500 ml Output Total 650 ml Balance 100 ml 500 ml medications Current Medications Medications Dose Ordered Sig/Sebas Route Start Time Stop Time Status Last Admin Dose Admin Ceftriaxone Sodium 50 ml @ 100 mls/hr Q24H IV 06/28/24 21:00 06/30/24 21:12 100 MLS/HR Azithromycin 500 mg Q24H PO 06/28/24 21:00 06/30/24 21:12 500 MG EZETIMIBE 10 mg QHSP PO 06/27/24 22:00 06/30/24 21:25 10 MG Pantoprazole Sodium 40 mg BID PO 06/27/24 22:00 07/01/24 10:29 40 MG Venlafaxine HCl 150 mg DAILY PO 06/28/24 10:00 07/01/24 10:27 150 MG Acetaminophen 650 mg Q6HP PRN PO 06/27/24 19:15 07/01/24 01:46 650 MG Zolpidem Tartrate 5 mg QHSP PRN PO 06/27/24 19:15 06/28/24 03:40 5 MG Lorazepam 0.5 mg Q6HP PRN PO 06/27/24 19:15 Docusate Sodium 100 mg DAILY PO 06/28/24 10:00 07/01/24 10:25 100 MG Ondansetron HCl 4 mg Q4HP PRN IV 06/27/24 19:15 06/30/24 19:55 4 MG Nitroglycerin 0.4 mg Q5MINP PRN SL 06/27/24 19:15 Morphine Sulfate 2 mg Q30M PRN IV 06/27/24 19:15 Diagnostic Test (Pha) 1 strip IQ4HR 06/27/24 20:00 07/01/24 16:00 1 STRIP Insulin Human Regular IQ4HR SC 06/27/24 20:00 06/28/24 21:23 4 UNITS Dextrose 50 ml UD PRN IV 06/27/24 19:15 Atorvastatin Calcium 40 mg HS PO 06/28/24 18:00 06/30/24 21:25 40 MG Metoprolol Succinate 25 mg DAILY PO 06/29/24 10:00 07/01/24 10:29 25 MG Clopidogrel Bisulfate 75 mg DAILY PO 06/29/24 10:00 07/01/24 10:27 75 MG Lisinopril 5 mg DAILY PO 06/29/24 10:00 07/01/24 10:28 5 MG Spironolactone 12.5 mg DAILY PO 06/29/24 10:00 07/01/24 10:25 12.5 MG Empaglifozin 10 mg DAILY PO 06/29/24 10:00 07/01/24 10:28 10 MG Furosemide 20 mg BIDD IV 06/28/24 18:00 07/01/24 05:31 20 MG Amiodarone HCl 200 mg BID PO 06/29/24 10:00 07/01/24 10:26 200 MG Examination: GENERAL:Abnormal, HEENT:Abnormal, LUNGS:Abnormal, CVS:Abnormal, ABDOMEN:Abnormal laboratory and microbiology Laboratory Tests 06/29/24 08:41 06/28/24 04:23 Test 06/28/24 04:23 Range/Units Serum Glucose 109 #H 74-106 mg/dL Problem List/Assessment/Plan Problem List/Assessment/Plan nstemi afib hx of gi bleed hx of cad s/p pci htn obesity copd [facility] tomorrow high risk pt given hx of complex pci afib rvr-iv digoxin x 1 now severe pad --noted on R leg angio [facility] shows RCA PUBLIC HEALTH CLINICAL NURSE SPECIALIST this is known from [facility] records, LAD stent patent, no critical left sided disease afib rvr at times recommend doac for his afib--but pt has hx of gi bleed as well per notes at [facility] outpt fu with his cards in 1-2 weeks Plan discussed with: Patient Date of Service: Jul 01, 2024 Billing Provider: BLANCO PALOMINO MD Common Visit Codes: NOT BILLABLE BLANCO PALOMINO MD Jul 01, 2024 17:09
[2024-07-02] VITALS (8 sets, daily range): BP systolic 92–132; BP diastolic 51–87; PULSE 60–101; RESP 15–22; TEMP 97.5–98.6; O2SAT 98–100
[2024-07-03 01:09] VITALS: BP 150/82; PULSE 51; RESP 17; TEMP 98.5; O2SAT 97
[2024-07-03 05:00] VITALS: BP 128/75; PULSE 61; RESP 18; TEMP 98.5; O2SAT 99
[2024-07-03 08:00] VITALS: PULSE 119
[2024-07-03 09:00] VITALS: BP 138/75; PULSE 109; RESP 17; TEMP 97.5; O2SAT 99
--- NOTE | 2024-07-03 12:18 | DVHPN2 ---
Reviewed: Care Plan, H&P, Labs, Medications, Previous Orders, Radiology Changes from previous H/P or p: No Changes Eyes: No Pain, No Vision change, No Conjunctivae inflammation, No Eyelid inflammation, No Other, No Redness ENT: No Ear pain, No Ear discharge, No Nose pain, No Nose discharge, No Nose congestion, No Mouth pain, No Mouth swelling, No Throat pain, No Throat swelling, No Other Cardiovascular: Chest Pain, Palpitations; No Orthopnea, No Paroxysmal Noc. Dyspnea, No Edema, No Lt Headedness, No Other Respiratory: Cough; No Dry; Shortness of breath; No SOB with excertion, No Wheezing, No Hemoptysis, No Pleuritic Pain, No Sputum, No Other Gastrointestinal: No Nausea, No Vomiting, No Abdominal Pain, No Diarrhea, No Constipation, No Melena, No Hematochezia, No Other Genitourinary: No Dysuria, No Frequency, No Incontinence, No Hematuria, No Retention, No Other Musculoskeletal: No other, No neck pain, No shoulder pain, No arm pain, No back pain, No hand pain, No leg pain, No foot pain Skin: No Rash, No Lesions, No Jaundice, No Bruising, No Other Objective Vitals Vital Signs Date Time Temp Pulse Resp B/P (MAP) Pulse Ox O2 Delivery O2 Flow Rate FiO2 07/03/24 10:15 138/75 07/03/24 10:15 109 07/03/24 09:00 97.5 17 99 97.5 07/02/24 20:00 Nasal Cannula* 3 32 Intake/Output Intake and Output 07/03/24 07:00 Intake Total 1555 ml Output Total 2850 ml Balance -1295 ml Intake Oral 1555 ml Output Urine Total 2850 ml Medications Current Medications Medications Dose Ordered Sig/Sebas Route Start Time Stop Time Status Last Admin Dose Admin Ceftriaxone Sodium 50 ml @ 100 mls/hr Q24H IV 06/28/24 21:00 07/02/24 22:34 100 MLS/HR Azithromycin 500 mg Q24H PO 06/28/24 21:00 07/02/24 22:35 500 MG EZETIMIBE 10 mg QHSP PO 06/27/24 22:00 07/02/24 22:36 10 MG Pantoprazole Sodium 40 mg BID PO 06/27/24 22:00 07/03/24 10:14 40 MG Venlafaxine HCl 150 mg DAILY PO 06/28/24 10:00 07/03/24 10:14 150 MG Acetaminophen 650 mg Q6HP PRN PO 06/27/24 19:15 07/02/24 18:42 650 MG Zolpidem Tartrate 5 mg QHSP PRN PO 06/27/24 19:15 06/28/24 03:40 5 MG Lorazepam 0.5 mg Q6HP PRN PO 06/27/24 19:15 Docusate Sodium 100 mg DAILY PO 06/28/24 10:00 07/03/24 10:14 100 MG Ondansetron HCl 4 mg Q4HP PRN IV 06/27/24 19:15 07/03/24 10:16 4 MG Nitroglycerin 0.4 mg Q5MINP PRN SL 06/27/24 19:15 Morphine Sulfate 2 mg Q30M PRN IV 06/27/24 19:15 Diagnostic Test (Pha) 1 strip IQ4HR 06/27/24 20:00 07/03/24 11:53 1 STRIP Insulin Human Regular IQ4HR SC 06/27/24 20:00 07/01/24 22:27 2 UNITS Dextrose 50 ml UD PRN IV 06/27/24 19:15 Atorvastatin Calcium 40 mg HS PO 06/28/24 18:00 07/02/24 22:36 40 MG Metoprolol Succinate 25 mg DAILY PO 06/29/24 10:00 07/03/24 10:15 25 MG Clopidogrel Bisulfate 75 mg DAILY PO 06/29/24 10:00 07/03/24 10:14 75 MG Lisinopril 5 mg DAILY PO 06/29/24 10:00 07/03/24 10:15 5 MG Spironolactone 12.5 mg DAILY PO 06/29/24 10:00 07/03/24 10:15 12.5 MG Empaglifozin 10 mg DAILY PO 06/29/24 10:00 07/03/24 10:32 10 MG Furosemide 20 mg BIDD IV 06/28/24 18:00 07/03/24 05:30 20 MG Amiodarone HCl 200 mg BID PO 06/29/24 10:00 07/03/24 10:15 200 MG Laboratory Results Laboratory Tests 06/28/24 04:23 06/29/24 08:41 Urinalysis Test 06/27/24 21:30 Urine Color Colorless (Yellow) Urine Clarity Clear (Clear) Urine pH 5.0 (5.0-9.0) Urine Specific [place] 1.008 (1.001-1.035) Urine Protein Negative (Negative) Urine Ketones Negative (Negative) Urine Blood Negative /uL (Negative) Urine Nitrite Negative (Negative) Urine Bilirubin Negative (Negative) Urine Urobilinogen Normal mg/dL (Negative) Urine Leukocyte Esterase Negative /uL (Negative) Urine RBC <1 /hpf (0 - 3) Urine WBC 1 /hpf (0 - 3) Urine Squamous Epithelial Cells None seen /hpf (<5) Urine Bacteria None seen /hpf (None Seen) Urine Hyaline Casts Mod /lpf (0 - 2) Urine Glucose 1+ mg/dL (Normal) H Assessment/Plan Assessment/Plan NSTEMI rule out in-stent restenosis/progressive coronary artery disease Coronary artery disease status post multiple PCIs including 5-6DES at [facility] two months ago Last appointment with his inside polisher 3 weeks back Status post left heart catheterization by Dr. Graff on 06/30/2024 with the following findings * RCA ASSEMBLER FLEXIBLE LEADS, which is old and chronic. * Patent LAD stent previously placed years ago. * No severe left-sided disease. * Significant peripheral arterial disease noted to the right lower extremity. Acute on chronic decompensated HFrEF, HYHA Class IV Ischemic cardiomyopathy ?LVEF Paroxysmal atrial fibrillation, on Xarelto/amiodarone therapy Acute on chronic hypoxic respiratory failure with COPD exacerbation Presence of BiV-AICD ([employer]) Hypertension Dyslipidemia Hard of hearing Continue all current meds Time Spent 75 minutes Patient is full code Advanced care planning time [address] Kailyn Em [facility] [phone] at bedside Physical therapy ordered Plan discussed with: Patient Date of Service: Jul 03, 2024 Billing Provider: ZANDER AGUIAR MD Common Visit Codes: [id number] INP/OBS CARE(HIGH) ZANDER AGUIAR MD Jul 03, 2024 12:18
--- NOTE | 2024-07-03 12:23 | DVHDS2 ---
Discharge Summary Date of Admission Jun 27, 2024 at 19:11 Date of Discharge: Jul 03, 2024 Admitting Diagnosis Chest pain Wounds: Heart catheterization Labs/Diagnostic Data: Laboratory Results Test 07/03/24 11:52 06/29/24 17:19 06/29/24 08:41 06/28/24 10:26 POC Glucose 121 mg/dl (70-106) Prothrombin Time 11.9 sec (9.3-11.8) Prothrombin Time INR 1.13 (0.9-1.15) Activated Partial Thromboplast Time 51.4 SEC (24.5-34.5) White Blood Count 6.6 10^3/uL (4.4-10.8) Red Blood Count 4.29 10^6/uL (4.5-5.90) Hemoglobin 10.7 g/dL (13.5-17.5) Hematocrit 33.2 % (41.0-53.0) Mean Corpuscular Volume 77.3 fL (80.0-100.0) Mean Corpuscular Hemoglobin 24.9 pg (28.0-32.0) Mean Corpuscular Hemoglobin Concent 32.2 g/dL (32.0-36.0) Red Cell Distribution Width 19.1 % (11.8-14.3) Platelet Count 175 10^3/uL (140-450) Mean Platelet Volume 8.1 fL (6.9-10.8) Neutrophils (%) (Auto) 72.7 % (37.0-80.0) Lymphocytes (%) (Auto) 10.8 % (10.0-50.0) Monocytes (%) (Auto) 13.2 % (0.0-12.0) Eosinophils (%) (Auto) 2.1 % (0.0-7.0) Basophils (%) (Auto) 1.2 % (0.0-2.0) Neutrophils # (Auto) 4.8 10 ^3/uL (1.6-8.6) Lymphocytes # (Auto) 0.7 10 ^3/uL (0.4-5.4) Monocytes # (Auto) 0.9 10 ^3/uL (0-1.3) Eosinophils # (Auto) 0.1 10 ^3/uL (0-0.8) Basophils # (Auto) 0.1 10 ^3/uL (0-0.2) Nucleated Red Blood Cells 0.1 % Troponin I High Sensitivity 2603 ng/L (</=54) Test 06/28/24 04:23 06/27/24 21:30 06/27/24 20:37 06/27/24 17:43 Sodium Level 143 mmol/L (136-145) Potassium Level 3.9 mmol/L (3.5-5.1) Chloride Level 103 mmol/L (98-107) Carbon Dioxide Level 27 mmol/L (20-31) Anion Gap 13 (5-15) Blood Urea Nitrogen 15 mg/dL (9-23) Creatinine 0.90 mg/dL (0.700-1.30) Glomerular Filtration Rate Calc 90 mL/min (>90) BUN/Creatinine Ratio 16.7 (10.0-20.0) Serum Glucose 109 mg/dL (74-106) Hemoglobin A1c 5.5 % A1C (<5.7) Calcium Level 10.2 mg/dL (8.7-10.4) B-Type Natriuretic Peptide 721.57 pg/mL (0-100) Triglycerides Level 160 mg/dL (< 150) Cholesterol Level 200 mg/dL (< 200) LDL Cholesterol 127 mg/dL (< 100) HDL Cholesterol 49 mg/dL (40-59) Thyroid Stimulating Hormone (TSH) 0.84 uIU/mL (0.55-4.78) Urine Color Colorless (Yellow) Urine Clarity Clear (Clear) Urine pH 5.0 (5.0-9.0) Urine Specific [place] 1.008 (1.001-1.035) Urine Protein Negative (Negative) Urine Ketones Negative (Negative) Urine Blood Negative /uL (Negative) Urine Nitrite Negative (Negative) Urine Bilirubin Negative (Negative) Urine Urobilinogen Normal mg/dL (Negative) Urine Leukocyte Esterase Negative /uL (Negative) Urine RBC <1 /hpf (0 - 3) Urine WBC 1 /hpf (0 - 3) Urine Squamous Epithelial Cells None seen /hpf (<5) Urine Bacteria None seen /hpf (None Seen) Urine Hyaline Casts Mod /lpf (0 - 2) Urine Glucose 1+ mg/dL (Normal) Lactic Acid Level 2.6 mmol/L (0.4-2.0) Phosphorus Level 3.6 mg/dL (2.4-5.1) Magnesium Level 1.9 mg/dL (1.6-2.6) Total Bilirubin 0.6 mg/dL (0.2-1.0) Aspartate Amino Transferase (AST) 19 U/L (13-40) Alanine Aminotransferase (ALT) 10 U/L (7-40) Alkaline Phosphatase 78 U/L (46-116) Total Protein 6.5 g/dL (5.7-8.2) Albumin 4.1 g/dL (3.2-4.8) Test 06/27/24 17:27 Blood Gas Specimen Type Arterial Blood Gas Sample Site Right radial Blood Gas Patient Temperature 37.0 Arterial Blood Date Drawn [id number] Arterial Blood pH 7.346 (7.350-7.450) Arterial Blood Partial Pressure CO2 38.5 mmHg (35.0-48.0) Arterial Blood Partial Pressure O2 93.5 mmHg (83.0-108.0) Arterial Blood HCO3 20.6 mmol/L (21.0-28.0) Arterial Blood Oxygen Saturation 96.5 % (94.0-98.0) Arterial Blood Base Excess -4.6 mmol/L (-2.0-3.0) Arterial Blood Oxyhemoglobin 95.4 % (94.0-98.0) Arterial Blood Carboxyhemoglobin 0.5 % (0.5-1.5) Arterial Blood Methemoglobin 0.6 % (0.0-1.5) Seth Test Yes Blood Gas Total Hemoglobin 11.80 g/dL (13.5-17.5) Blood Gas Set Respiration Rate 12.0 Blood Gas Modality Mask - bipap Blood Gas Spontaneous Rate 13 FiO2 % 50.0 Blood Gas EPAP 5 Blood Gas IPAP 15 Other Laboratory Tests 06/29/24 08:41 06/28/24 04:23 Brief Hx & Hospital Course: Before year old male with a complicated cardiac history including CHF ischemic cardiomyopathy AFib presence of AICD hypertension hypercholesterolemia history of coronary artery disease status post multiple stents at [facility] two months ago came in for chest pain. Patient underwent left heart catheterization by Dr. Graff on 06/30/2024 found to have RCA ALTERATION INSPECTOR which is old and chronic, patent LAD stent placed years ago, no severe left-sided disease. Patient was treated with the his home medications. Patient was cleared by Cardiology for discharge. Patient discharged home to resume his previous home medications. At the time of discharge patient is alert stable vital signs. General condition poor secondary to multiple comorbidities and multiple stents in the past. Consults/Reason for consult Cardiology Dr. Graff Operations or Procedures Left heart catheterization Condition at Discharge: Fair Final Diagnosis/Problems List NSTEMI rule out in-stent restenosis/progressive coronary artery disease Coronary artery disease status post multiple PCIs including 5-6DES at [facility] two months ago Last appointment with his healthcare science specialist 3 weeks back Status post left heart catheterization by Dr. Graff on 06/30/2024 with the following findings * RCA ALTERATION INSPECTOR, which is old and chronic. * Patent LAD stent previously placed years ago. * No severe left-sided disease. * Significant peripheral arterial disease noted to the right lower extremity. Acute on chronic decompensated HFrEF, HYHA Class IV Ischemic cardiomyopathy ?LVEF Paroxysmal atrial fibrillation, on Xarelto/amiodarone therapy Acute on chronic hypoxic respiratory failure with COPD exacerbation Presence of BiV-AICD ([employer]) Hypertension Dyslipidemia Hard of hearing Discharge Disposition: Home Discharge Instruct/Medications Diet: Cardiac 2g Na,low cholest Activity: Light activity Follow Up/Referral: Resume all your previous home medications Follow up with your primary Dr and healthcare science specialist Medications: None Reviewed all his previous home meds 39 (Time taken for discharge summary 39 minutes) Discharge Statement: "Patient was advised to return to the ER or call 911 if any headaches, dizziness, shortness of breath, chest pain, abdominal pain, bleeding, fevers, or worsening of medical condition. Patient was counseled about treatment plan, medications, possible side effects, patientverbalized understanding. All questions were answered to the best of my ability. This discharge took greater then 30 minutes in planning, reviewing documentation, counseling the patient, and discussing with other team members." ASSESSMENT ASSESSMENT Hospital Course Improved Assessment NSTEMI rule out in-stent restenosis/progressive coronary artery disease Coronary artery disease status post multiple PCIs including 5-6DES at [facility] two months ago Last appointment with his healthcare science specialist 3 weeks back Status post left heart catheterization by Dr. Graff on 06/30/2024 with the following findings * RCA ALTERATION INSPECTOR, which is old and chronic. * Patent LAD stent previously placed years ago. * No severe left-sided disease. * Significant peripheral arterial disease noted to the right lower extremity. Acute on chronic decompensated HFrEF, HYHA Class IV Ischemic cardiomyopathy ?LVEF Paroxysmal atrial fibrillation, on Xarelto/amiodarone therapy Acute on chronic hypoxic respiratory failure with COPD exacerbation Presence of BiV-AICD ([employer]) Hypertension Dyslipidemia Hard of hearing Date of Service: Jul 03, 2024 Billing Provider: ZANDER AGUIAR MD Common Visit Codes: [id number] DISCH DAY >30min ZANDER AGUIAR MD Jul 03, 2024 12:23
[2024-07-03 13:00] VITALS: BP 113/64; PULSE 103; RESP 18; TEMP 97.6; O2SAT 100
== END 2024-07-03 15:11 | disposition home or self-care (01) | DRG 280 ==
LOC: ER 16:45 → EDBD 16:45 → TELE 19:11 → TELE-WESTW 19:32
PROVIDERS: ADMIT Hospitalist; ATTEND Family Medicine
PROC: 4A023N7 Measurement of Cardiac Sampling and Pressure, Left Heart, Percutaneous Approach (ICD-10-PCS; principal; 2024-06-30)
PROC: B211YZZ Fluoroscopy of Multiple Coronary Arteries using Other Contrast (ICD-10-PCS; 2024-06-30)
DX: I21.4 Non-ST elevation (NSTEMI) myocardial infarction (principal); I50.43 Acute on chronic combined systolic (congestive) and diastolic (congestive) heart failure; J96.21 Acute and chronic respiratory failure with hypoxia; J18.9 Pneumonia, unspecified organism; J44.1 Chronic obstructive pulmonary disease with (acute) exacerbation; I48.20 Chronic atrial fibrillation, unspecified; I11.0 Hypertensive heart disease with heart failure; I25.5 Ischemic cardiomyopathy; I48.0 Paroxysmal atrial fibrillation; I25.10 Atherosclerotic heart disease of native coronary artery without angina pectoris; E11.51 Type 2 diabetes mellitus with diabetic peripheral angiopathy without gangrene; I44.7 Left bundle-branch block, unspecified; E66.9 Obesity, unspecified; I70.8 Atherosclerosis of other arteries; I35.0 Nonrheumatic aortic (valve) stenosis; E78.00 Pure hypercholesterolemia, unspecified; Z85.46 Personal history of malignant neoplasm of prostate; Z95.810 Presence of automatic (implantable) cardiac defibrillator; Z95.5 Presence of coronary angioplasty implant and graft; Z90.49 Acquired absence of other specified parts of digestive tract; Z79.01 Long term (current) use of anticoagulants; Z80.0 Family history of malignant neoplasm of digestive organs; Z68.27 Body mass index [BMI] 27.0-27.9, adult; Z80.1 Family history of malignant neoplasm of trachea, bronchus and lung; Z80.42 Family history of malignant neoplasm of prostate; Z80.8 Family history of malignant neoplasm of other organs or systems; Z81.8 Family history of other mental and behavioral disorders; Z82.0 Family history of epilepsy and other diseases of the nervous system; Z82.3 Family history of stroke; Z82.49 Family history of ischemic heart disease and other diseases of the circulatory system; Z82.5 Family history of asthma and other chronic lower respiratory diseases; Z82.62 Family history of osteoporosis; Z83.3 Family history of diabetes mellitus; Y84.8 Other medical procedures as the cause of abnormal reaction of the patient, or of later complication, without mention of misadventure at the time of the procedure; Y92.89 Other specified places as the place of occurrence of the external cause
CPT/HCPCS: 36415; 36600; 71045; 80048; 80053; 80061; 81001; 82805; 82962; 83036; 83605; 83735; 83880; 84100; 84443; 84484; 85025; 85610; 85730; 86850; 86900; 86901; 93005; 93306; 93458; 94660; 97163; 99152; 99291; G0378; J1815; J2250; J2405; Q9967